=== PATIENT | male | born 1945 | race Caucasian/White ===

== ENCOUNTER 2017-02-26 06:46 | Day surgery (SDC) | payer MEDICARE ==
[~2017-02-26] VITALS: Ht 167.6 cm; Wt 65.8 kg
[2017-02-26] VITALS (11 sets, daily range): BP systolic 135–150; BP diastolic 67–90
[~2017-02-26 06:46] MED LIST: ALPR0.25 PO; DOXY100C42 PO; ENAL20TA PO; HEParin (CATH LAB) 2,000 ML IV ONE; HYDR12.570 GT; HYDR25TA4 PO; NEBI5TAB8 PO
--- OUTSIDE RECORDS SUMMARY | 2017-02-26 06:50 | XMS REPORT | Continuity of Care Document ---
Author Author [facility] Organization [facility] Address Unknown Phone Unavailable Allergies Active Description Code Type Severity Reaction Onset Reported/Identified Relationship to Patient Clinical Status Yes No Known Drug Allergies [id number] Drug Allergy Unknown N/ A 04/12/2014 Medications Problems Date Dx Coded Attending Type Code Diagnosis Diagnosed By 04/13/2014 VERONICA DEXTER MD Ot 250.00 04/13/2014 VERONICA DEXTER MD Ot 272.4 04/13/2014 VERONICA DEXTER MD Ot 276.1 04/13/2014 VERONICA DEXTER MD Ot 276.8 04/13/2014 VERONICA DEXTER MD Ot 278.00 04/13/2014 VERONICA DEXTER MD Ot 401.9 04/13/2014 VERONICA DEXTER MD Ot 410.41 04/13/2014 VERONICA DEXTER MD Ot 414.01 04/13/2014 VERONICA DEXTER MD Ot V85.36 05/13/2014 VERONICA DEXTER MD Ot 410.92 05/13/2014 VERONICA DEXTER MD Ot V57.89 05/24/2014 VERONICA DEXTER MD Ot 410.92 05/24/2014 VERONICA DEXTER MD Ot V57.89 07/01/2014 VERONICA DEXTER MD Ot 410.92 07/01/2014 VERONICA DEXTER MD Ot V57.89 07/01/2014 VERONICA DEXTER MD Ot 410.92 07/01/2014 VERONICA DEXTER MD Ot V57.89 07/27/2014 VERONICA DEXTER MD Ot 410.92 07/27/2014 VERONICA DEXTER MD Ot V57.89 08/09/2014 VERONICA DEXTER MD Ot 410.92 08/09/2014 VERONICA DEXTER MD Ot V57.89 08/10/2014 VERONICA DEXTER MD Ot 410.92 08/10/2014 GUERITA HA, BASDAWSON J Ot V57.89 08/10/2014 GUERITA HA, MALISSAHAR J Ot 410.92 08/10/2014 GUERITA HA, VERONICA J Ot V57.89 08/12/2014 GUERITA HA, BASHAR J Ot 410.92 08/12/2014 GUERITA HA, VERONICA J Ot V57.89 08/12/2014 GUERITA HA, VERONICA J Ot 410.92 08/12/2014 GUERITA HA, VERONICA J Ot V57.89 08/12/2014 GUERITA HA, BASHAR J Ot 410.92 08/12/2014 GUREITA HA, BASDAWSON J Ot V57.89 08/12/2014 GUERITA HA, VERONICA J Ot 410.92 08/12/2014 GUERITA HA, VERONICA J Ot V57.89 08/12/2014 GUERITA HA, VERONICA J Ot 410.92 08/12/2014 GUERITA HA, VERONICA J Ot V57.89 08/15/2014 GUERITA HA, VERONICA J Ot 410.92 08/15/2014 GUERITA HA, VERONICA J Ot V57.89 08/15/2014 GUERITA HA, VERONICA J Ot 410.92 08/15/2014 GUERITA HA, VERONICA J Ot V57.89 08/19/2014 GUERITA HA, VERONICA J Ot 410.92 08/19/2014 GUERITA HA, VERONICA J Ot V57.89 08/29/2014 VERONICA DEXTER MD Ot 272.4 08/29/2014 VERONICA DEXTER MD Ot 401.9 08/29/2014 VERONICA DEXTER MD Ot 414.00 08/29/2014 VERONICA DEXTER MD J Ot 786.50 09/08/2014 JAZMIN LOWRY MD Ot 250.00 09/08/2014 JAZMIN LOWRY MD Ot 916.4 09/08/2014 JAZMNI LOWRY MD Ot E000.8 09/08/2014 JAZMIN LOWRY MD Ot E906.4 10/13/2014 DIMA HA, MONY R Ot 250.00 03/01/2015 VERONICA DEXTER MD Ot 272.4 03/01/2015 VERONICA DEXTER MD Ot 401.9 03/01/2015 VERONICA DEXTER MD Ot 414.00 03/01/2015 VERONICA DEXTER MD Ot 786.50 03/01/2015 DIMA HA, MONY R Ot 250.00 03/02/2015 VERONICA DEXTER MD Ot E78.5 03/02/2015 VERONICA DEXTER MD Ot I25.10 03/02/2015 VERONICA DEXTER MD Ot I44.7 03/02/2015 VERONICA DEXTER MD Ot R07.89 03/29/2015 VERONICA DEXTER MD Ot E78.5 03/29/2015 VERONICA DEXTER MD Ot I25.10 03/29/2015 VERONICA DEXTER MD Ot I44.7 03/29/2015 VERONICA DEXTER MD Ot R07.89 04/04/2015 VERONICA DEXTER MD Ot E78.5 04/04/2015 VERONICA DEXTER MD Ot I25.10 04/04/2015 VERONICA DEXTER MD Ot I44.7 04/04/2015 VERONICA DEXTER MD Ot R07.9 04/06/2015 VERONICA DEXTER MD Ot E78.5 04/06/2015 VERONICA DEXTER MD Ot I25.10 04/06/2015 VERONICA DEXTER MD Ot I44.7 04/06/2015 VERONICA DEXTER MD Ot R07.89 04/10/2015 VERONICA DEXTER MD Ot E07.89 04/10/2015 VERONICA DEXTER MD Ot E78.4 04/10/2015 VERONICA DEXTER MD Ot I10 04/10/2015 VERONICA DEXTER MD Ot I25.10 04/13/2015 VERONICA DEXTER MD Ot E78.5 04/13/2015 VERONICA DEXTER MD Ot I25.10 04/13/2015 VERONICA DEXTER MD Ot I44.7 04/13/2015 VERONICA DEXTER MD Ot R07.9 Procedures Results Encounters ACCT No. Visit Date/Time Discharge Status Pt. Type Provider Facility Loc./Unit Complaint [id number] 03/30/2015 07:27:00 2014 23:59:59 CLS Outpatient VERONICA DEXTER MD [facility] LAB [id number] 03/10/2015 07:33:00 2014 23:59:59 CLS Outpatient VERONICA DEXTER MD [facility] CARD [id number] 03/01/2015 11:43:00 2014 23:59:59 CLS Outpatient VERONICA DEXTER MD [facility] CARD [id number] 09/20/2014 10:45:00 2014 23:59:59 CLS Outpatient DIMA HA, MONY Tran [facility] LAB [id number] 09/07/2014 23:28:00 2014 00:30:00 DIS Emergency ESSENCE HA, JAZMIN [facility] ER [id number] 08/19/2014 11:17:00 2014 12:10:00 DIS Outpatient VERONICA DEXTER MD [facility] CR [id number] 08/11/2014 09:00:00 2014 23:59:59 CLS Preadmit VERONICA DEXTER MD [facility] CR [id number] 08/10/2014 13:11:00 2014 00:01:00 DIS Outpatient VERONICA DEXTER MD [facility] CR [id number] 08/02/2014 06:33:00 2014 23:59:59 CLS Outpatient VERONICA DEXTER MD [facility] LAB [id number] 04/12/2014 07:10:00 2014 19:20:00 DIS Inpatient VERONICA DEXTER MD [facility] [id number] 02/26/2017 06:46:00 ACT Outpatient VERONICA DEXTER MD [facility] CATH ABN STRESS, CAD,
[2017-02-26] MEDS ORDERED: NS IV 1000 ML 1,000 ML IV SCH ×2 (07:00→09:21)
[2017-02-26 07:17] LABS: BILIRUBIN,URINE NEGATIVE (NEGATIVE); KETONES,URINE NEGATIVE (NEGATIVE); LEUKOCYTE ESTERASE ,URINE NEGATIVE (NEGATIVE); NITRITE,URINE NEGATIVE (NEGATIVE); PH,URINE 7 (5-9); PROTEIN,URINE NEGATIVE (NEGATIVE); UROBILINOGEN,URINE NORMAL (NORMAL)
[2017-02-26 07:19] LABS: MEAN PLATELET VOLUME 11.2 FL (7.4-10.4); RED BLOOD COUNT 4.28 10^6/uL (4.35-5.85); RED CELL DISTRIBUTION WIDTH 13.2 % (10.0-14.5); WHITE BLOOD COUNT 7.6 10^3/uL (4.3-11.0)
[2017-02-26 07:32] LABS: SQUAMOUS EPITHELIAL CELL,UR RARE /HPF; WBC,URINE RARE /HPF
[2017-02-26 07:34] LABS: PROTHROMBIN TIME PATIENT 12.8 SEC (12.2-14.7)
--- NOTE | 2017-02-26 07:38 | Diagnostic Imaging Report ---
INDICATION: Precatheterization evaluation. COMPARISON: 04/12/2014. FINDINGS: Upright portable view of the chest is obtained. There is significant distortion of the chest from severe dextrorotoscoliosis of the spine. Heart size and pulmonary vasculature appear normal. No pneumothorax, mediastinal widening or pleural fluid suspected. The lungs appear clear. There is chronic deformity of the left shoulder. IMPRESSION: No acute cardiopulmonary abnormality is seen. No interval change from the prior study. Dictated by: Dictated on workstation # [id number]
[2017-02-26] MEDS ORDERED: fentaNYL INJECTION 100 MCG/2 ML AMP ONE (07:42)
[2017-02-26] MEDS ORDERED: MIDAZOLAM 2 MG/2 ML (VERSED) VIAL ONE (07:43)
[2017-02-26] MEDS ORDERED: diphenhydrAMINE 50 MG/ML INJ (BENADRYL) ONE (07:43)
[2017-02-26] MEDS ORDERED: methylPREDNISolone 125 MG (Solu-MEDROL) VIAL ONE (07:43)
[2017-02-26 07:45] LABS: ALANINE AMINOTRANSFERASE 21 U/L (0-55); ANION GAP 11 MMOL/L (5-14); ASPARTATE AMINO TRANSFERASE 20 U/L (5-34); BILIRUBIN,TOTAL 0.7 MG/DL (0.1-1.0); BLOOD UREA NITROGEN 17 MG/DL (7-18); BUN/CREATININE RATIO 23; CALCIUM 10.1 MG/DL (8.5-10.1); CARBON DIOXIDE 29 MMOL/L (21-32); CHLORIDE 101 MMOL/L (98-107); CHOLESTEROL 112 MG/DL (< 200); CREATININE SERUM 0.75 MG/DL (0.60-1.30); DIRECT LDL 46 MG/DL (1-129); GFR ESTIMATED > 60; GLUCOSE 102 MG/DL (70-105); POTASSIUM 3.3 MMOL/L (3.6-5.0); SODIUM 141 MMOL/L (135-145); TOTAL PROTEIN 7.4 GM/DL (6.4-8.2); TRIGLYCERIDES 98 MG/DL (<150); VLDL CHOLESTEROL 20 MG/DL (5-40)
[2017-02-26] MEDS ORDERED: HEParin 1000 UNIT/ML (10ML VIAL) FOR BOLUS ONE (07:46)
[2017-02-26] MEDS ORDERED: NITROGLYCERIN DRIP 25 MG/D5W 250 ML IV ONE (07:46)
[2017-02-26] MEDS ORDERED: VERAPAMIL 5 MG/2 ML (CALAN) VIAL IV ONE (07:46)
[2017-02-26] MEDS ORDERED: TRAM50TA2 PO (07:49)
[2017-02-26] MEDS ORDERED: BACL10TA PO (07:49)
[2017-02-26] MEDS ORDERED: ASPI-586 PO (07:49)
[2017-02-26] MEDS ORDERED: ATOR40TA70 PO (07:49)
[2017-02-26] MEDS ORDERED: METF500T4 PO (07:49)
[2017-02-26] MEDS ORDERED: HYDR-3820 PO (07:49)
[2017-02-26] MEDS ORDERED: INFLUENZA TRIvalent 2017-2018 0.5 ML/45 MCG SYR IM ONE (08:00)
--- NOTE | 2017-02-26 09:18 | Cardiac Procedure Note-CS/ASA ---
Pre-Procedure Note Pre-Op Procedure Note H&P Reviewed The H&P was reviewed, patient examined and no changes noted. Date H&P Reviewed: Feb 26, 2017 Time H&P Reviewed: 08:00 Conscious Sedation Pre-Proced Time Reviewed: 08:00 ASA Class: 3 Airway Mallampati Classification: ([place] appropriate class) I. II. III, IV Lungs Heart ASA score ASA 1: a normal healthy patient ASA 2: a patient with a mild systemic disease (mid diabetes, controlled hypertension, obesity x ASA 3: a patient with a severe systemic disease that limits activity (angina , COPD, prior Myocardial infarction) ASA 4: a patient with an incapacitating disease that is a constant threat to life (CHF, renal failure) ASA 5: a moribund patient not expected to survive 24 hrs. (ruptured aneurysm) ASA 6: a declared brain patient whose organs are being harvested. For emergent operations, add the letter E after the classification Grade 3 Sedation Plan: Analgesia, Amnesia, Plan communicated to team members, Discussed options with patient/fam, Discussed risks with patient/fam Note The patient is an appropriate candidate to undergo the planned procedure, sedation, and anesthesia. The patient immediately re-assessed prior to indication. VERONICA DEXTER MD Feb 26, 2017 09:18
--- NOTE | 2017-02-26 09:25 | Discharge Inst-Post CATH ---
Discharge Inst-CATH Post Cardiac Cath D/C Inst Follow Up/Plan Appointment with Dr. Molina's office in 2-4 weeks CARDIAC CATH DISCHARGE INSTRUCTIONS *Hold Metformin for 48 hours post heart cath. ACTIVITY * Go Home directly and rest. * Limit activity of the leg (or wrist if it was used) for 7 days including aerobics, swimming, jogging, bicycling, etc. * Restrict stair-climbing for 7 days if possible, if not, climb up with your non -cath leg, then bring together on the same step. * Avoid lifting, pushing, pulling or excessive movement of the affected extremity for 7 days. * Customary sexual activity may be resumed after 2 days-use caution not to use a position that strains or causes pain to the affected extremity. * No driving for 24 hours. * NO SMOKING. * Avoid straining for bowel movements for 7 days. * Gentle walking on level ground is allowed. * Returning to work will depend on the type of procedure and the results. Your doctor will discuss this with you. CALL YOUR DOCTOR FOR ANY OF THE FOLLOWING: *If bleeding from the puncture site occurs- Apply gentle pressure to site with clean cloth and call your doctor or EMS. * If a knot or lump forms under the skin, increases in size, or causes pain. * If bruising appears to be worsening or moving further down your leg instead of disappearing. * Temperature above 101 F. CARE OF YOUR GROIN INCISION; * Bruising or purple discoloration of the skin near the puncture site is common. * You may shower only, no bathtub bathing for 5 days. Be careful to avoid slipping as your leg may feel stiff. * If a closure device was used on your femoral artery, please see the attached guide regarding care of the device and your leg. * REMOVE the dressing from your groin the next day after your procedure in the shower. CARE OF YOUR WRIST INCISION; * Bruising or purple discoloration of the skin near the puncture site is common. * You may shower. * DO NOT submerge wrist. * Remove dressing in 24 hours. VERONICA MOLINA MD Feb 26, 2017 9:25 am
[2017-02-26] MEDS ORDERED: PATIENT MAY USE OWN MEDS, ALL PO SCH (09:30)
--- NOTE | 2017-02-26 09:32 | Cardiac Cath Report ---
Cardiac Cath Report Physician (s)/Vp Of Marketing (s) Physician VERONICA DEXTER MD Pre-Procedure Diagnosis Pre-Procedure Diagnosis: chest pain, coronary artery disease Post-Procedure Note Procedure Start Date: Feb 26, 2017 Procedure Start Time: 08:30 Name of Procedure: left heart catheterization 68531 Left ventriculogram Findings/Procedure Note PROCEDURE NOTE: After explaining the procedure to the patient, all pros and cons were explained, all questions were answered. The patient signed the consent and then she was placed on the cardiac catheterization laboratory. The patient was placed on the cardiac catheterization laboratory. Right wrist was prepped SL fashion local anesthesia was used. Sheath placed in the radial artery. Brayden catheter was used, advanced to the coronary system and to the left ventricular cavity I used FR guide to evaluate the right coronary system Left ventriculogram was done At the end of the procedure the sheath was removed. Closure device was used FINDINGS: Hemodynamics LV 110/15 end-diastolic pressure 15 Aorta 110/50 mean of 19 ANATOMY: Left Main is free of obstructive disease Left Anterior Descending has a patent stent with mild disease distally Left Circumflex is moderate in size with patent stent in the mid circumflex artery, no significant obstructive disease Right Coronory Artery is [id number] in size, ostial 40-50 percent stenosis, mid right coronary artery has 50 percent stenosis, small vessel disease distally LV Gram was done showing normal left ventricular size and systolic function estimated ejection fraction 60 percent CONCLUSION: 1. Patent stent in the LAD and circumflex artery, small vessel disease distally 2. 40-50 percent ostial and mid right coronary artery, small vessel disease distally nonobstructive disease 3. Normal left ventricular size and systolic function estimated ejection fraction 60 percent DISCUSSION AND RECOMMENDATION: Medical therapy is recommended no intervention is warranted Anesthesia Type: Conscious Sedation Estimated blood loss (mL): 5 ml Contrast Amount: 114 ml Total Radiation Dose: 819 mGy Post-Procedure Diagnosis Post-operative diagnosis: Chest pain nonspecific etiology Coronary artery disease Hypertension VERONICA DEXTER MD Feb 26, 2017 9:31 am
== END 2017-02-26 12:40 | disposition home or self-care (01) ==
LOC: CATH 06:46 → SURG 09:24 → CATH 12:40
PROVIDERS: ATTEND Internal Medicine Cardiovascular Disease
DX: I25.10 Atherosclerotic heart disease of native coronary artery without angina pectoris (principal); I10 Essential (primary) hypertension; Z95.5 Presence of coronary angioplasty implant and graft; I25.2 Old myocardial infarction; Z79.899 Other long term (current) drug therapy; Z91.041 Radiographic dye allergy status; K21.9 Gastro-esophageal reflux disease without esophagitis; E78.5 Hyperlipidemia, unspecified; E11.9 Type 2 diabetes mellitus without complications; Z79.84 Long term (current) use of oral hypoglycemic drugs; Z79.891 Long term (current) use of opiate analgesic; I65.23 Occlusion and stenosis of bilateral carotid arteries; E66.9 Obesity, unspecified; M41.9 Scoliosis, unspecified; Z68.24 Body mass index [BMI] 24.0-24.9, adult
CPT/HCPCS: 36415; 71010; 80053; 80061; 81000; 85027; 85610; 85730; 87081; 93005

== ENCOUNTER 2019-12-18 19:56 | Observation (INO) | payer MEDICARE ==
[~2019-12-18] VITALS: Ht 167 cm; Wt 87.0 kg
[~2019-12-18 19:56] MED LIST changes: +ACHYD1T PO; +ASPI-586 PO; +ATOR40TA70 PO; +BACL10TA PO; -HEParin (CATH LAB) 2,000 ML IV ONE; +METF-397 PO; +TRM50T PO
[2019-12-18 20:15] LABS: BASOPHILS % (AUTO) 0 % (0-10); EOSINOPHILS # (AUTO) 0.3 10^3/uL (0.0-0.3); EOSINOPHILS % (AUTO) 4 % (0-10); HEMATOCRIT 42 % (40-54); HEMOGLOBIN 14.2 G/DL (13.3-17.7); LYMPHOCYTES # (AUTO) 1.7 X 10^3 (1.0-4.0); LYMPHOCYTES % (AUTO) 24 % (12-44); MEAN CORPUSCULAR HEMOGLOBIN 32 PG (25-34); MEAN CORPUSCULAR HGB CONC 34 G/DL (32-36); MEAN CORPUSCULAR VOLUME 93 FL (80-99); MONOCYTES # (AUTO) 0.6 X 10^3 (0.0-1.0); MONOCYTES % (AUTO) 8 % (0-12); NEUTROPHILS # (AUTO) 4.5 X 10^3 (1.8-7.8); NEUTROPHILS % (AUTO) 64 % (42-75); PLATELET COUNT 178 10^3/uL (130-400); WHITE BLOOD COUNT 7.1 10^3/uL (4.3-11.0)
--- NOTE | 2019-12-18 20:17 | ED Chest Pain ---
General Chief Complaint: Chest Pain Stated Complaint: CP Source: patient Exam Limitations: no limitations History of Present Illness Date Seen by Provider: Dec 18, 2019 Time Seen by Provider: 19:55 Initial Comments Patient arrives the ER by EMS from home with chief complaint of intermittent chest pain substernal radiating through to his back for the past week. He had a fall in his garage and he thought maybe that was the source of his back pain. Typically when his pain would come on while he was working on a car he would go in and sit down and the pain would go away. Tonight however he went and sat in his living room and the pain did not go away. Pain started about 1800, 2 hours prior to arrival. EMS put a nitroglycerin paste on his chest which brought his pain from an 8 out of 10 down to 3 out of 10. He has no history of AAA or great vessel disease. He does have a history of several coronary stents placed by Dr. Molina. He still follows with him. Dr. Worrell is his primary care doctor. He is not having any shortness of breath fever cough nausea vomiting diarrhea or constipation. He does not smoke cigarettes anymore. He does have diabetes however as well as hypertension and hyperlipidemia. He did take a dose of Xanax prior to coming to the ER. Cardiac catheterization [address] Molina. Patent stent in the LAD and circumflex artery. Small vessel disease distally. 40-50% ostial and mid right coronary artery, small vessel disease distally nonobstructive. Normal left ventricular size and systolic function with EF of 60%. Allergies and Home Medications Allergies Uncoded Allergies: IV DYE (Allergy, Unknown, 12/18/19) Home Medications Alprazolam 0.25 Mg Tablet, 0.25 MG PO HSPRN, (Reported) Aspirin 81 Mg Tablet.dr, 81 MG PO DAILY, (Reported) Atorvastatin Calcium 40 Mg Tablet, 40 MG PO HS, (Reported) Baclofen 10 Mg Tablet, 10 MG PO PRN, (Reported) Hydrochlorothiazide 25 Mg Tablet, 25 MG PO DAILY, (Reported) Hydrocodone Bit/Acetaminophen 1 Each Tablet, 1 EACH PO PRN, (Reported) Metformin HCl 500 Mg Tablet, 500 MG PO BID, (Reported) Nebivolol Hcl 5 Mg Tablet, 1 EACH PO DAILY, (Reported) Tramadol HCl 50 Mg Tablet, 50 MG PO PRN, (Reported) Patient Home Medication List Home Medication List Reviewed: Yes Review of Systems Review of Systems Constitutional: No chills, No fever EENTM: No Blurred Vision, No Double Vision Respiratory: Denies Cough, Denies Shortness of Air Cardiovascular: See HPI, Chest Pain; Denies Edema, Denies Irregular Heart Rate, Denies Palpitations, Denies Syncope Gastrointestinal: Denies Constipated, Denies Diarrhea, Denies Nausea Genitourinary: Denies Discharge, Denies Drainage Musculoskeletal: see HPI, back pain; No joint pain All Other Systems Reviewed Negative Unless Noted: Yes Past Pvgjmym-Faiqct-Ogjihy Hx Patient Social History Alcohol Use: Denies Use Recreational Drug Use: No Smoking Status: Former Smoker Type Used: Cigarettes Former Smoker, Quit: Feb 26, 1982 Immunizations Up To Date Tetanus Booster (TDap): Less than 5yrs PED Vaccines UTD: No Seasonal Allergies Seasonal Allergies: No Past Medical History Appendectomy, Gallbladder, Orthopedic Hypertension Reproductive Disorders: No Sexually Transmitted Disease: No HIV/AIDS: No Gastroesophageal Reflux Anxiety Adverse Reaction/Blood Tranf: No Family Medical History FH: COPD (chronic obstructive pulmonary disease) 19 MOTHER, Onset:60 years & older FH: lung cancer 19 FATHER, Onset:60 years & older Glaucoma G8 SISTER, Onset:Unknown Hypertension G8 BROTHER, Onset:Unknown G8 SISTER, Onset:Unknown TIAs G8 BROTHER, Onset:Unknown Physical Exam Vital Signs Capillary Refill : Height, Weight, BMI Height: 5'6.00" Weight: 145lbs. 0.0oz. 65.850395vl; 23.4 BMI Method:Stated General Appearance: No Apparent Distress, WD/WN HEENT: PERRL/EOMI, Pharynx Normal Neck: Full Range of Motion, Normal Inspection Respiratory: Chest Non Tender, Lungs Clear, Normal Breath Sounds, No Accessory Muscle Use, No Respiratory Distress Cardiovascular: Regular Rate, Rhythm, No Edema, Normal Peripheral Pulses Gastrointestinal: Normal Bowel Sounds, Non Tender, Soft Extremity: Normal Capillary Refill, Normal Range of Motion, Non Tender Neurologic/Psychiatric: Oriented x3 Skin: Normal Color, Warm/Dry Progress/Results/Core Measures Results/Orders Lab Results Laboratory Tests Test 12/18/19 20:00 Range/Units White Blood Count 7.1 4.3-11.0 10^3/uL Red Blood Count 4.50 4.35-5.85 10^6/uL Hemoglobin 14.2 13.3-17.7 G/DL Hematocrit 42 40-54 % Mean Corpuscular Volume 93 80-99 FL Mean Corpuscular Hemoglobin 32 25-34 PG Mean Corpuscular Hemoglobin Concent 34 32-36 G/DL Red Cell Distribution Width 13.6 10.0-14.5 % Platelet Count 178 130-400 10^3/uL Mean Platelet Volume 11.0 H 7.4-10.4 FL Neutrophils (%) (Auto) 64 42-75 % Lymphocytes (%) (Auto) 24 12-44 % Monocytes (%) (Auto) 8 0-12 % Eosinophils (%) (Auto) 4 0-10 % Basophils (%) (Auto) 0 0-10 % Neutrophils # (Auto) 4.5 1.8-7.8 X 10^3 Lymphocytes # (Auto) 1.7 1.0-4.0 X 10^3 Monocytes # (Auto) 0.6 0.0-1.0 X 10^3 Eosinophils # (Auto) 0.3 0.0-0.3 10^3/uL Basophils # (Auto) 0.0 0.0-0.1 10^3/uL Prothrombin Time 13.1 12.2-14.7 SEC INR Comment 1.0 0.8-1.4 Activated Partial Thromboplast Time 26 24-35 SEC Sodium Level 141 135-145 MMOL/L Potassium Level 3.5 L 3.6-5.0 MMOL/L Chloride Level 102 98-107 MMOL/L Carbon Dioxide Level 26 21-32 MMOL/L Anion Gap 13 5-14 MMOL/L Blood Urea Nitrogen 18 7-18 MG/DL Creatinine 0.98 0.60-1.30 MG/DL Estimat Glomerular Filtration Rate > 60 BUN/Creatinine Ratio 18 Glucose Level 199 H 70-105 MG/DL Calcium Level 9.8 8.5-10.1 MG/DL Corrected Calcium 9.7 8.5-10.1 MG/DL Magnesium Level 1.6 1.6-2.4 MG/DL Total Bilirubin 0.3 0.1-1.0 MG/DL Aspartate Amino Transf (AST/SGOT) 19 5-34 U/L Alanine Aminotransferase (ALT/SGPT) 20 0-55 U/L Alkaline Phosphatase 96 40-136 U/L Myoglobin 176.8 H 10.0-92.0 NG/ML Troponin I 0.039 H <0.028 NG/ML B-Type Natriuretic Peptide 27.1 <100.0 PG/ML Total Protein 7.1 6.4-8.2 GM/DL Albumin 4.1 3.2-4.5 GM/DL Lipase 33 8-78 U/L My Orders Orders - ELIAZAR,BRAD J Cbc With Automated Diff (12/18/19:) Magnesium (12/18/19:) Chest 1 View, Ap/Pa Only (12/18/19:) Ekg Tracing (12/18/19:) Comprehensive Metabolic Panel (12/18/19) Myoglobin Serum (12/18/19:) Protime With Inr (12/18/19:) Partial Thromboplastin Time (12/18/19:) O2 (12/18/19:) Monitor-Rhythm Ecg Trace Only (12/18/19:) Lipid Panel (12/19/19 06:00) Ed Iv/Invasive Line Start (12/18/19:) Lipase (12/18/19 20:) BNP (12/18/19:) Troponin I (12/18/19:) Progress Progress Note : Time: 20:13 Progress Note EMS gave him 4 aspirin prior to arrival. He has received nitroglycerin paste which seems to be helping his pain. He does have some minor depression which could be related to a right bundle branch block in his lateral leads. Plan to repeat an EKG after a while. We'll get some troponins. Even with a normal troponin he would have a heart score 7 points. 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 Diagnostic Imaging Diagonstic Imaging: Xray Plain Films/CT/US/NM/MRI: chest (1v) Comments NAME: SHAHZAD MUNOZ [facility] REC#: [id number] PT STATUS: REG ER : 1945 PHYSICIAN: BRAD PEREA MD ADMIT DATE: 12/18/19/ER Draft Date of Exam:12/18/19 CHEST 1 VIEW, AP/PA ONLY EXAMINATION: Chest radiograph, portable AP view. DATE: 12/18/2019 8:28 PM. INDICATION: 74-year-old male, chest pain. COMPARISON: February 26, 2017. FINDINGS: There is severe thoracic dextroscoliosis. Stable overall appearance of the cardiomediastinal silhouette. There is no identified pneumothorax. There is no large pleural effusion. There is no identified interval focal airspace consolidation. There is ankylosis between the humeral head and glenoid and potentially in the region of the left acromioclavicular joint as well. IMPRESSION: 1. Severe scoliosis. 2. No identified interval acute cardiopulmonary abnormality. Dictated on workstation # [id number] Dict: 12/18/192031 Trans: 12/18/192039 [facility] [id number] Interpreted by: JUAN SANCHEZ MD Electronically signed by: Reviewed: Reviewed by Me Departure Communication (Admissions) Time/Spoke to Admitting Phy: 20:45 Discussed the case with Dr. Hernandez and he agrees to observe the patient with a cardiac consult. Time/Spoke to Consulting Phy: 20:40 Discussed the case with Dr. Molina and he agrees to consult with aspirin, Lovenox. Impression Primary Impression: Unstable angina Disposition: ADMITTED INPATIENT Condition: Stable Admissions Decision to Admit Reason: Admit from ER (General) Decision to Admit/Date: Dec 18, 2019 Time/Decision to Admit Time: 20:17 Departure-Patient Inst. Referrals: MONY CH MD (PCP/Family) Primary Care Physician BRAD PEREA Dec 18, 2019 20:17
[2019-12-18 20:23] LABS: PROTHROMBIN TIME PATIENT 13.1 SEC (12.2-14.7)
[2019-12-18 20:35] LABS: ALANINE AMINOTRANSFERASE 20 U/L (0-55); ALBUMIN 4.1 GM/DL (3.2-4.5); ALKALINE PHOSPHATASE 96 U/L (40-136); BILIRUBIN,TOTAL 0.3 MG/DL (0.1-1.0); BUN/CREATININE RATIO 18; CALCIUM 9.8 MG/DL (8.5-10.1); CARBON DIOXIDE 26 MMOL/L (21-32); CHLORIDE 102 MMOL/L (98-107); CREATININE SERUM 0.98 MG/DL (0.60-1.30); GFR ESTIMATED > 60; GLUCOSE 199 MG/DL (70-105); LIPASE 33 U/L (8-78); MAGNESIUM 1.6 MG/DL (1.6-2.4); POTASSIUM 3.5 MMOL/L (3.6-5.0); SODIUM 141 MMOL/L (135-145); TOTAL PROTEIN 7.1 GM/DL (6.4-8.2)
--- NOTE | 2019-12-18 20:42 | Diagnostic Imaging Report ---
EXAMINATION: Chest radiograph, portable AP view. DATE: 12/18/2019 8:28 PM. INDICATION: 74-year-old male, chest pain. COMPARISON: February 26, 2017. FINDINGS: There is severe thoracic dextroscoliosis. Stable overall appearance of the cardiomediastinal silhouette. There is no identified pneumothorax. There is no large pleural effusion. There is no identified interval focal airspace consolidation. There is ankylosis between the humeral head and glenoid and potentially in the region of the left acromioclavicular joint as well. IMPRESSION: 1. Severe scoliosis. 2. No identified interval acute cardiopulmonary abnormality. Dictated by: Dictated on workstation # [id number]
[2019-12-18] MEDS ORDERED: ENOXAPARIN 100 MG/1 ML (LOVENOX) SYR SC ONE (21:00)
[2019-12-18 21:47] VITALS: BP 150/83
[2019-12-18] MEDS ORDERED: ACETAMINOPHEN 325 MG TABLET PO PRN (22:00)
[2019-12-18] MEDS ORDERED: ALPRAZolam 0.5 MG (XANAX) TAB PO PRN (22:00)
[2019-12-18] MEDS ORDERED: NITROGLYCERIN 2% OINT 1 GM UNIT DOSE PACKET TOP PRN (22:00)
[2019-12-18] MEDS ORDERED: morphine INJ 4 MG/ML 1 ML (VIAL/SYRINGE) IV PRN (22:00)
[2019-12-18] MEDS ORDERED: ONDANSETRON 4 MG/2 ML (SDV) Z0FRAN IVP PRN (22:00)
[2019-12-18 23:09] VITALS: BP 117/57
[2019-12-19] VITALS (13 sets, daily range): BP systolic 104–159; BP diastolic 54–87
[2019-12-19 03:18] LABS: BASOPHILS % (AUTO) 1 % (0-10); EOSINOPHILS # (AUTO) 0.2 10^3/uL (0.0-0.3); EOSINOPHILS % (AUTO) 3 % (0-10); HEMATOCRIT 38 % (40-54); HEMOGLOBIN 13.1 G/DL (13.3-17.7); LYMPHOCYTES # (AUTO) 2.4 X 10^3 (1.0-4.0); LYMPHOCYTES % (AUTO) 30 % (12-44); MEAN CORPUSCULAR HEMOGLOBIN 32 PG (25-34); MEAN CORPUSCULAR HGB CONC 34 G/DL (32-36); MEAN CORPUSCULAR VOLUME 93 FL (80-99); MEAN PLATELET VOLUME 11.4 FL (7.4-10.4); MONOCYTES # (AUTO) 0.8 X 10^3 (0.0-1.0); MONOCYTES % (AUTO) 11 % (0-12); NEUTROPHILS # (AUTO) 4.5 X 10^3 (1.8-7.8); NEUTROPHILS % (AUTO) 56 % (42-75); PLATELET COUNT 177 10^3/uL (130-400)
[2019-12-19 03:35] LABS: ALBUMIN 3.7 GM/DL (3.2-4.5); CHLORIDE 103 MMOL/L (98-107); POTASSIUM 3.5 MMOL/L (3.6-5.0); SODIUM 140 MMOL/L (135-145)
[2019-12-19 03:36] LABS: CALCIUM 9.7 MG/DL (8.5-10.1)
[2019-12-19 03:37] LABS: TOTAL PROTEIN 6.1 GM/DL (6.4-8.2); TRIGLYCERIDES 132 MG/DL (<150); VLDL CHOLESTEROL 26 MG/DL (5-40)
[2019-12-19 03:38] LABS: GLUCOSE 97 MG/DL (70-105)
[2019-12-19 03:39] LABS: BILIRUBIN,TOTAL 0.3 MG/DL (0.1-1.0); CARBON DIOXIDE 27 MMOL/L (21-32)
[2019-12-19 03:41] LABS: ALKALINE PHOSPHATASE 76 U/L (40-136); CREATININE SERUM 0.77 MG/DL (0.60-1.30); GFR ESTIMATED > 60
[2019-12-19 03:42] LABS: CHOLESTEROL 108 MG/DL (< 200)
[2019-12-19 03:43] LABS: BUN/CREATININE RATIO 22; HDL CHOLESTEROL 41 MG/DL (40-60)
[2019-12-19 03:44] LABS: ALANINE AMINOTRANSFERASE 15 U/L (0-55)
[2019-12-19] MEDS ORDERED: FLU QUAD HIGH DOSE 240 MCG/0.7 ML 2020-21 (FLUZONE) IM ONE (07:15)
[2019-12-19] MEDS ORDERED: ASPIRIN E.C. 81 MG (ECOTRIN) TAB PO SCH (09:00)
[2019-12-19] MEDS ORDERED: ENOXAPARIN 100 MG/1 ML (LOVENOX) SYR SC SCH (09:00)
[2019-12-19] MEDS ORDERED: fentaNYL INJECTION 100 MCG/2 ML AMP ONE (09:11)
[2019-12-19] MEDS ORDERED: MIDAZOLAM 5 MG/5 ML (VERSED) VIAL ONE (09:11)
[2019-12-19] MEDS ORDERED: LIDOCAINE 1% INJ 20 ML 20 ML VIAL ONE (09:11)
[2019-12-19] MEDS ORDERED: HEParin (CATH LAB) 2,000 ML IV ONE (09:12)
[2019-12-19] MEDS ORDERED: NS IV 1000 ML 1,000 ML ONE (09:12)
[2019-12-19] MEDS ORDERED: diphenhydrAMINE 50 MG/ML INJ (BENADRYL) ONE (09:46)
[2019-12-19] MEDS ORDERED: methylPREDNISolone 125 MG (Solu-MEDROL) VIAL ONE (09:46)
--- NOTE | 2019-12-19 09:53 | Consultation-Cardiology ---
HPI-Cardiology Cardiology Consultation Date of Consultation 12/19/19 Date of Admission Time Seen by Provider: 09:49 Indication: chest pain HPI 74 years old gentleman with history of coronary artery disease, multiple intervention the past. Start to have recurrent chest pain with exertion which was worsening over the past 2 days, had significant pain in the retrosternal area yesterday evening, persistent, came into the emergency room for evaluation given sublingual nitroglycerin and reported improvement after the nitroglycerin since then did not have any further episode of chest pain until this morning when he had mild chest discomfort. On my evaluation was feeling better, denied any active pain, admits having some dyspnea on exertion. No palpitation. No syncope or near syncopal episodes Home Medications & Allergies Allergies: Uncoded Allergies: IV DYE (Allergy, Unknown, 12/18/19) Home Medication List Reviewed: Yes NLM-Shyibk-Nnjhnc Hx Patient Social History Marital Status: Employed/Student: employed, retired Alcohol Use: Denies Use Recreational Drug Use: No Smoking Status: Former Smoker Type Used: Cigarettes Recent Foreign Travel: No Recent Infectious Disease Expo: No Recent Hopitalizations: No Immunizations Up To Date Tetanus Booster (TDap): Less than 5yrs Past Medical History Discussed below Family Medical History Family History: FH: COPD (chronic obstructive pulmonary disease) 19 MOTHER, Onset:60 years & older FH: lung cancer 19 FATHER, Onset:60 years & older Glaucoma G8 SISTER, Onset:Unknown Hypertension G8 BROTHER, Onset:Unknown G8 SISTER, Onset:Unknown TIAs G8 BROTHER, Onset:Unknown Review of Systems-General Review of Systems Constitutional: No chills, No fever EENTM: see HPI, no symptoms reported Respiratory: see HPI; No cough; dyspnea on exertion; No hemoptysis, No orthopnea, No phlegm, No short of breath, No stridor, No wheezing, No other Cardiovascular: see HPI, chest pain; No edema, No Hx of Intervention, No palpitations, No syncope, No vascular heart diseas, No other Gastrointestinal: no symptoms reported, see HPI Genitourinary: no symptoms reported, see HPI Musculoskeletal: see HPI, back pain; No joint pain Skin: no symptoms reported, see HPI Psychiatric/Neurological: No Symptoms Reported, See HPI All Other Systems Reviewed Negative Unless Noted: Yes Reviewed Test Results Reviewed Test Results Lab Laboratory Tests Test 12/18/19 20:00 12/19/19 01:58 12/19/19 08:08 Range/Units White Blood Count 7.1 8.0 4.3-11.0 10^3/uL Red Blood Count 4.50 4.12 L 4.35-5.85 10^6/uL Hemoglobin 14.2 13.1 L 13.3-17.7 G/DL Hematocrit 42 38 L 40-54 % Mean Corpuscular Volume 93 93 80-99 FL Mean Corpuscular Hemoglobin 32 32 25-34 PG Mean Corpuscular Hemoglobin Concent 34 34 32-36 G/DL Red Cell Distribution Width 13.6 13.4 10.0-14.5 % Platelet Count 178 177 130-400 10^3/uL Mean Platelet Volume 11.0 H 11.4 H 7.4-10.4 FL Neutrophils (%) (Auto) 64 56 42-75 % Lymphocytes (%) (Auto) 24 30 12-44 % Monocytes (%) (Auto) 8 11 0-12 % Eosinophils (%) (Auto) 4 3 0-10 % Basophils (%) (Auto) 0 1 0-10 % Neutrophils # (Auto) 4.5 4.5 1.8-7.8 X 10^3 Lymphocytes # (Auto) 1.7 2.4 1.0-4.0 X 10^3 Monocytes # (Auto) 0.6 0.8 0.0-1.0 X 10^3 Eosinophils # (Auto) 0.3 0.2 0.0-0.3 10^3/uL Basophils # (Auto) 0.0 0.0 0.0-0.1 10^3/uL Prothrombin Time 13.1 12.2-14.7 SEC INR Comment 1.0 0.8-1.4 Activated Partial Thromboplast Time 26 24-35 SEC Sodium Level 141 140 135-145 MMOL/L Potassium Level 3.5 L 3.5 L 3.6-5.0 MMOL/L Chloride Level 102 103 98-107 MMOL/L Carbon Dioxide Level 26 27 21-32 MMOL/L Anion Gap 13 10 5-14 MMOL/L Blood Urea Nitrogen 18 17 7-18 MG/DL Creatinine 0.98 0.77 0.60-1.30 MG/DL Estimat Glomerular Filtration Rate > 60 > 60 BUN/Creatinine Ratio 18 22 Glucose Level 199 H 97 70-105 MG/DL Calcium Level 9.8 9.7 8.5-10.1 MG/DL Corrected Calcium 9.7 9.9 8.5-10.1 MG/DL Magnesium Level 1.6 1.6-2.4 MG/DL Total Bilirubin 0.3 0.3 0.1-1.0 MG/DL Aspartate Amino Transf (AST/SGOT) 19 21 5-34 U/L Alanine Aminotransferase (ALT/SGPT) 20 15 0-55 U/L Alkaline Phosphatase 96 76 40-136 U/L Myoglobin 176.8 H 10.0-92.0 NG/ML Troponin I 0.039 H 0.873 *H 1.903 *H <0.028 NG/ML B-Type Natriuretic Peptide 27.1 <100.0 PG/ML Total Protein 7.1 6.1 L 6.4-8.2 GM/DL Albumin 4.1 3.7 3.2-4.5 GM/DL Lipase 33 8-78 U/L Triglycerides Level 132 <150 MG/DL Cholesterol Level 108 < 200 MG/DL LDL Cholesterol Direct 55 1-129 MG/DL VLDL Cholesterol 26 5-40 MG/DL HDL Cholesterol 41 40-60 MG/DL Physical Exam Physical Exam Vital Signs Vital Signs - First Documented 12/18/19 21:32 Pulse Ox 98 Capillary Refill : Less Than 3 SecondsLess Than 3 Seconds Height, Weight, BMI Height: 5'6.00" Weight: 145lbs. 0.0oz. 65.126091mm; 31.37 BMI Method:Stated General Appearance: No Apparent Distress, WD/WN Eyes: Bilateral Eye Normal Inspection, Bilateral Eye PERRL, Bilateral Eye EOMI HEENT: PERRL/EOMI, Pharynx Normal Neck: Full Range of Motion, Normal Inspection Respiratory: Chest Non Tender, Lungs Clear, Normal Breath Sounds, No Accessory Muscle Use, No Respiratory Distress Cardiovascular: Regular Rate, Rhythm, No Edema, Normal Peripheral Pulses Gastrointestinal: Normal Bowel Sounds, Non Tender, Soft Back: Normal Inspection, No CVA Tenderness, No Vertebral Tenderness Extremity: Normal Capillary Refill, Normal Range of Motion, Non Tender Neurologic/Psychiatric: Oriented x3 Skin: Normal Color, Warm/Dry Lymphatic: No Adenopathy A/P-Cardiology Admission Diagnosis Non-ST elevation myocardial infarctions Coronary artery disease Hypertension Hyperlipidemia Assessment/Plan Non-ST elevation myocardial infarction, has been having accelerating angina. Planning to proceed with cardiac catheterization possible PTCA Coronary artery disease status post myocardial infarction in 2014 had 2 stents in the right coronary artery using 2.5 x 8 and 2.75 x 12 mm with good results. Patient had multivessel disease he was transferred to [facility] underwent LAD stenting using Promus Premier 2.75 x 20 mm and stent to the circumflex artery using Promus Premier 3.0 x 28 mm. Had another cardiac catheterization January 2017 showing patent stent with small vessel disease distally. Ostial right coronary artery. Planning to proceed with cardiac catheterization today. Hypertension, restart home medication monitor Hyperlipidemia, restart home medication monitor Mild bilateral carotid stenosis, last ultrasound was done in November 2018 Diabetes mellitus History of back pain. Clinical Quality Measures AMI/AHF: ASA po Prior to arrival: Yes (4 81MG ASA PO) DVT/VTE Risk/Contraindication: Risk Factor Score Per Nursin RFS Level Per Nursing on Admit: 3=High VERONICA DEXTER MD Dec 19, 2019 9:53 am
--- NOTE | 2019-12-19 09:53 | Cardiac Procedure Note-CS/ASA ---
Pre-Procedure Note Pre-Op Procedure Note H&P Reviewed The H&P was reviewed, patient examined and no changes noted. Date H&P Reviewed: Dec 19, 2019 Time H&P Reviewed: 09:53 Conscious Sedation Pre-Proced Time 09:53 ASA Score 3 For ASA 3 and 4: Consider anesthesia and medical clearance. Also, for patients with a history of failed moderate sedation consider anesthesia. Airway Lungs Heart ASA score ASA 1: a normal healthy patient ASA 2: a patient with a mild systemic disease (mid diabetes, controlled hypertension, obesity x ASA 3: a patient with a severe systemic disease that limits activity (angina, COPD, prior Myocardial infarction) ASA 4: a patient with an incapacitating disease that is a constant threat to life (CHF, renal failure) ASA 5: a moribund patient not expected to survive 24 hrs. (ruptured aneurysm) ASA 6: a declared brain- patient whose organs are being harvested. For emergent operations, add the letter E after the classification Mallampati Classification Grade 3 Sedation Plan Analgesia, Amnesia, Plan communicated to team members, Discussed options with patient/fam, Discussed risks with patient/fam The patient is an appropriate candidate to undergo the planned procedure, sedation, and anesthesia. The patient immediately re-assessed prior to indication. VERONICA DEXTER MD Dec 19, 2019 9:53 am
[2019-12-19] MEDS ORDERED: HEParin 1000 UNIT/ML (10ML VIAL) FOR BOLUS ONE (10:07)
[2019-12-19] MEDS: NS IV 1000 ML 1,000 ML IV SCH ×4 (10:10→19:14)
[2019-12-19] MEDS ORDERED: NITRO DRIP 25000 MCG/D5W 0 ML IV ONE (10:18)
[2019-12-19] MEDS ORDERED: ASPIRIN 325 MG (5 GR) TABLET ONE (10:32)
[2019-12-19] MEDS ORDERED: CLOPIDOGREL 300 MG (PLAVIX) TABLET PO ONE (10:32)
--- NOTE | 2019-12-19 10:40 | Cardiac Cath Report ---
Cardiac Cath Report Physician (s)/Brazer Induction (s) Physician VERONICA DEXTER MD Pre-Procedure Diagnosis Pre-Procedure Diagnosis: chest pain, coronary artery disease Post-Procedure Note Procedure Start Date: Dec 19, 2019 Name of Procedure: Left heart catheterization Stenting of the circumflex artery Findings/Procedure Note PROCEDURE NOTE: 74 years old gentleman admitted with unstable angina, had elevated troponin level, nondiagnostic EKG changes, diagnosed with non-ST elevation myocardial infarction, decided to proceed with cardiac catheterization possible PTCA After explaining the procedure to the patient, all pros and cons were explained, all questions were answered. The patient signed the consent and then he was placed on the cardiac catheterization laboratory. Premedicated with Solu-Medrol and Benadryl due to contrast allergy. Groin was prepped SL fashion local anesthesia was used. Sheath placed in the right femoral artery. Lori right and left catheter were used to access the coronary system. Pigtail was used to access the left ventricular cavity. Left ventriculogram was done Patient was given 6000 units of heparin, EBU 3.5 guide was used, had tortuous aorta, had difficulty intubating the left main with a guide. I used BMW wire and advanced it through the circumflex artery, had subtotal occlusion the mid circumflex artery. Then I advanced a 3 x 15 balloon and using the balloon as a shaft I was able to position the guide at a better spot didn't predilated location the lesion was soft then proceeded with deployment of Xience Fatuma 3 x 12 mm stent overlapping with an old stent deployed at 3.15 mm under 16 mango with excellent results At the end of the procedure the sheath was removed. Closure device was used FINDINGS: Hemodynamics LV 164/19, end-diastolic pressure of 19 Aorta 157/71 mean of 105 ANATOMY: Left Main is free of obstructive disease Left Anterior Descending is slightly tortuous, patent stent in the mid LAD with mild disease distally Left Circumflex is dominant artery with severe stenosis/subtotal occlusion in the midportion, successful balloon angioplasty then deployment of Fatuma 3 x 12 mm stent expanded to 3.15 mm overlapping with the old stent in the mid circumflex artery with excellent results Right Coronory Artery has 2 patent stents in the proximal and midportion with mild disease distally 50 percent stenosis of the midportion nonobstructive disease LV Gram was done showing normal left ventricular size with normal systolic function estimated ejection fraction 50 percent CONCLUSION: 1. Severe stenosis/subtotal occlusion in the mid circumflex artery proximal to a previously placed stent, successful stenting using Fatuma 3 x 12 mm expanded to 3.15 overlapping with the old stent with excellent results 2. A 10 stent in the LAD with some tortuosity and mild disease nonobstructive disease 3. Patent proximal and mid stent in the right coronary artery with 50 percent stenosis in the midright coronary artery nonobstructive disease 4. Normal left ventricular size, preserved contractibility, EF 50 percent 5. Hypertensive changes in the thoracic aorta with S-shaped aortic DISCUSSION AND RECOMMENDATION: Patient was bolused with aspirin and Plavix, restart home medication monitor Anesthesia Type: Conscious Sedation Estimated blood loss (mL): 25 ml Contrast Amount: 120 ml Total Radiation Dose: 1442 mGy Post-Procedure Diagnosis Post-operative diagnosis: Non-ST elevation myocardial infarction Coronary artery disease Hypertension Hyperlipidemia VERONICA DEXTER MD Dec 19, 2019 10:40 am
[2019-12-19] MEDS ORDERED: PATIENT MAY USE OWN MEDS, ALL PO SCH (10:45)
--- NOTE | 2019-12-19 11:37 | History & Physical-Hospitalist ---
History of Present Illness HPI/Chief Complaint Aristides Berg is a 74-year-old male with past medical history of hypertension, diabetes, hyperlipidemia, coronary artery disease, who presented with chest pain.he reports that the chest pain was in the center of his chest and nonradiating. He denies any associated shortness of breath. He denies any nausea or vomiting. He denies any diaphoresis. He says that his chest pain is completely resolved at this time. He denies any fevers or chills. He denies any cough. He denies any abdominal pain. Source: patient, family Exam Limitations: no limitations Date Seen 12/19/19 Time Seen by a Provider: 08:30 Attending Physician Nathaly Smith MD PCP Tonio Hernandez MD Referring Physician Date of Admission Dec 18, 2019 at 20:55 Home Medications & Allergies Home Medications Reviewed patient Home Medication Reconciliation performed by pharmacy medication reconciliations alignment technician and/or nursing. Patients Allergies have been reviewed. Allergies Allergies Uncoded Allergies IV DYE ( Allergy, Unknown, 12/18/19) Past Hmephpd-Wiuvkc-Vobemj Hx Past Med/Social Hx: Reviewed Nursing Past Med/Soc Hx Patient Social History Marrital Status: Employed/Student: employed, retired Alcohol Use: Denies Use Recreational Drug Use: No Smoking Status: Former Smoker Former Smoker, Quit: Feb 26, 1982 Type Used: Cigarettes Recent Foreign Travel: No Contact w/other who traveled: No Recent Hopitalizations: No Recent Infectious Disease Expo: No Immunizations Up To Date Tetanus Booster (TDap): Less than 5yrs Pediatric: No Seasonal Allergies Seasonal Allergies: No Past Medical History Surgeries: Appendectomy, Gallbladder, Orthopedic Cardiac: Heart Attack, Hypertension Reproductive: No Sexually Transmitted Disease: No HIV/AIDS: No Gastrointestinal: Gastroesophageal Reflux Psychosocial: Anxiety History of Blood Disorders: No Adverse Reaction to Blood Lopez: No Family History FH: COPD (chronic obstructive pulmonary disease) 19 MOTHER, Onset:60 years & older FH: lung cancer 19 FATHER, Onset:60 years & older Glaucoma G8 SISTER, Onset:Unknown Hypertension G8 BROTHER, Onset:Unknown G8 SISTER, Onset:Unknown TIAs G8 BROTHER, Onset:Unknown Review of Systems Constitutional: no symptoms reported EENTM: no symptoms reported Respiratory: no symptoms reported Cardiovascular: chest pain Gastrointestinal: no symptoms reported Genitourinary: no symptoms reported Musculoskeletal: no symptoms reported Skin: no symptoms reported Psychiatric/Neurological: No Symptoms Reported Physical Exam Physical Exam Vital Signs Vital Signs - First Documented 12/18/19 21:32 Pulse Ox 98 Capillary Refill : Less Than 3 SecondsLess Than 3 Seconds Height, Weight, BMI Height: 5'6.00" Weight: 145lbs. 0.0oz. 65.125884ur; 31.37 BMI Method:Stated General Appearance: No Apparent Distress, WD/WN HEENT: PERRL/EOMI, Pharynx Normal Neck: Normal Inspection, Supple Respiratory: Lungs Clear, Normal Breath Sounds, No Respiratory Distress Cardiovascular: Regular Rate, Rhythm, No Edema, No Murmur Gastrointestinal: Normal Bowel Sounds, Non Tender, Soft Extremity: Normal Inspection, Non Tender, No Pedal Edema Neurologic/Psychiatric: Alert, Oriented x3, No Motor/Sensory Deficits, Normal Mood/Affect Skin: Normal Color, Warm/Dry Results Results/Procedures Labs Laboratory Tests 12/18/19 20:00 12/19/19 01:58 Patient resulted labs reviewed. Imaging: Reviewed Imaging Report Assessment/Plan Admission Diagnosis NSTEMI Admission Status: Inpatient Order (span 2 midnights) Reason for Inpatient Admission: NSTEMI requiring monitoring and cardiac intervention Assessment and Plan NSTEMI CAD HTN HLD Former smoker EKG unremarkable Initial troponin 0.03, trended up to 0.87, increased to 1.90 this morning Cardiology consulted, appreciate assistance Planning for left heart catheterization today Continue aspirin Continue statin Type II diabetes mellitus Sliding scale insulin Hypokalemia Monitor and replace as needed Obesity clinically significant, no acute management needs DVT prophylaxis: Lovenox Diagnosis/Problems Diagnosis/Problems (1) NSTEMI (non-ST elevation myocardial infarction) Status: Acute (2) CAD (coronary artery disease) Status: Acute (3) HTN (hypertension) Status: Chronic (4) HLD (hyperlipidemia) Status: Chronic (5) T2DM (type 2 diabetes mellitus) Status: Chronic (6) Hypokalemia Status: Acute (7) Scoliosis Status: Chronic (8) Former smoker Status: Chronic (9) Obesity Status: Chronic Clinical Quality Measures AMI/AHF: ASA po Prior to arrival: Yes (4 81MG ASA PO) DVT/VTE Risk/Contraindication: Risk Factor Score Per Nursin RFS Level Per Nursing on Admit: 3=High NATHALY SMITH MD Dec 19, 2019 11:37
[2019-12-19] MEDS ORDERED: ALPR0.5T7 PO (14:48)
[2019-12-19] MEDS ORDERED: TRM50T PO (14:48)
[2019-12-19] MEDS: inSUlin ASPART (NovoLOG) 1 UNIT/0.01 ML (CHARGE PER UNIT) SC SCH ×2 (16:59→19:53)
[2019-12-19] MEDS: CARVEDILOL 12.5 MG (COREG) TABLET PO SCH (19:53)
[2019-12-20 03:03] VITALS: BP 136/81
[2019-12-20 03:43] LABS: HEMOGLOBIN 13.1 G/DL (13.3-17.7); MEAN PLATELET VOLUME 10.8 FL (7.4-10.4); WHITE BLOOD COUNT 11.1 10^3/uL (4.3-11.0)
[2019-12-20 04:04] LABS: CHLORIDE 106 MMOL/L (98-107)
[2019-12-20 04:05] LABS: POTASSIUM 3.6 MMOL/L (3.6-5.0); SODIUM 140 MMOL/L (135-145)
[2019-12-20 04:06] LABS: CALCIUM 9.1 MG/DL (8.5-10.1); GLUCOSE 140 MG/DL (70-105)
[2019-12-20 04:08] LABS: CARBON DIOXIDE 24 MMOL/L (21-32)
[2019-12-20 04:10] LABS: CREATININE SERUM 0.81 MG/DL (0.60-1.30); GFR ESTIMATED > 60
[2019-12-20 04:11] LABS: BUN/CREATININE RATIO 21
[2019-12-20] MEDS: inSUlin ASPART (NovoLOG) 1 UNIT/0.01 ML (CHARGE PER UNIT) SC SCH ×2 (05:20→11:55)
[2019-12-20] MEDS: NS IV 1000 ML 1,000 ML IV SCH ×2 (05:20)
[2019-12-20 07:38] VITALS: BP 132/76
[2019-12-20] MEDS: CARVEDILOL 12.5 MG (COREG) TABLET PO SCH (07:42)
--- NOTE | 2019-12-20 08:41 | Discharge Summary ---
Diagnosis/Chief Complaint Date of Admission Dec 18, 2019 at 20:55 Date of Discharge Admission Diagnosis NSTEMI Primary Care Tonio Hernandez MD Discharge Diagnosis (1) NSTEMI (non-ST elevation myocardial infarction) Status: Acute (2) CAD (coronary artery disease) Status: Acute (3) HTN (hypertension) Status: Chronic (4) HLD (hyperlipidemia) Status: Chronic (5) T2DM (type 2 diabetes mellitus) Status: Chronic (6) Hypokalemia Status: Acute (7) Scoliosis Status: Chronic (8) Former smoker Status: Chronic (9) Obesity Status: Chronic Discharge Summary Discharge Physical Exam Allergies: Uncoded Allergies: IV DYE (Allergy, Unknown, 12/18/19) Vitals & I&Os Vital Signs Date Time Temp Pulse Resp B/P (MAP) Pulse Ox O2 Delivery O2 Flow Rate FiO2 12/20/19 07:38 89 20 132/76 (94) 95 Room Air 12/20/19 03:03 36.3 General Appearance: No Apparent Distress, WD/WN Respiratory: Lungs Clear, No Respiratory Distress Cardiovascular: Regular Rate, Rhythm, No Murmur Gastrointestinal: Normal Bowel Sounds, Soft Neurologic/Psychiatric: Alert, Oriented x3 Hospital Course Pt was admitted to the hospital due to chest pain and was found to have a rising troponin. He was taken to the laboratory veterinarian on 12/19/19 where PCI was performed to the mid circumflex artery. He did well post cath and was able to be discharged home in stable condition to follow up with her primary care, Dr Worrell and cardiology, Dr Molina. He is to continue on DAPT with Plavix and aspirin. Labs (last 24 hrs) Laboratory Tests 12/19/19 12:16: Glucometer 146H 12/19/19 15:06: Glucometer 266H 12/19/19 19:50: Glucometer 346H 12/20/19 03:28: White Blood Count 11.1H, Red Blood Count 4.16L, Hemoglobin 13.1L, Hematocrit 39L , Mean Corpuscular Volume 93, Mean Corpuscular Hemoglobin 31, Mean Corpuscular Hemoglobin Concent 34, Red Cell Distribution Width 13.7, Platelet Count 186, Mean Platelet Volume 10.8H, Sodium Level 140, Potassium Level 3.6, Chloride Level 106, Carbon Dioxide Level 24, Anion Gap 10, Blood Urea Nitrogen 17, Creatinine 0.81, Estimat Glomerular Filtration Rate > 60, BUN/Creatinine Ratio 21, Glucose Level 140H, Calcium Level 9.1 Patient resulted labs reviewed. Pending Labs Laboratory Tests 12/20/19 03:28: White Blood Count 11.1, Red Blood Count 4.16, Hemoglobin 13.1, Hematocrit 39, Mean Corpuscular Volume 93, Mean Corpuscular Hemoglobin 31, Mean Corpuscular Hemoglobin Concent 34, Red Cell Distribution Width 13.7, Platelet Count 186, Mean Platelet Volume 10.8, Sodium Level 140, Potassium Level 3.6, Chloride Level 106, Carbon Dioxide Level 24, Anion Gap 10, Blood Urea Nitrogen 17, Creatinine 0.81, Estimat Glomerular Filtration Rate > 60, BUN/Creatinine Ratio 21, Glucose Level 140, Calcium Level 9.1 Imaging: Reviewed Imaging Report Discussion & Recommendations Discharge Planning: >30 minutes discharge planning Discharge Home Medications: Active Scripts Active Reported Tramadol HCl 50 Mg Tablet 100 Mg PO Q6H PRN Alprazolam 0.5 Mg Tablet 0.5 Mg PO Q8H PRN 7 Days Aspir 81 (Aspirin) 81 Mg Tablet.dr 81 Mg PO DAILY Metformin HCl 500 Mg Tablet 500 Mg PO BID Baclofen 10 Mg Tablet 10 Mg PO PRN HYDROcodone/APAP 10/325 TABLET (Acetaminophen/Hydrocodone Bitart) 1 Each Tablet 1 Each PO PRN Atorvastatin Calcium 40 Mg Tablet 40 Mg PO HS Bystolic (Nebivolol Hcl) 5 Mg Tablet 1 Each PO DAILY Hydrochlorothiazide 25 Mg Tablet 25 Mg PO DAILY Instructions to patient/family Please see electronic discharge instructions given to patient. Clinical Quality Measures AMI/AHF: ASA po Prior to arrival: Yes (4 81MG ASA PO) DVT/VTE Risk/Contraindication: Risk Factor Score Per Nursin RFS Level Per Nursing on Admit: 3=High Copy Copies To 1: LEAH WORRELL KATELYN M MD Dec 20, 2019 08:41
[2019-12-20] MEDS ORDERED: METF-397 PO (08:43)
[2019-12-20] MEDS ORDERED: CLOP75TA28 PO (08:43)
--- NOTE | 2019-12-20 08:44 | Discharge Inst-Simple/Standard ---
Discharge Inst-Standard Discharge Medications New, Converted or Re-Newed RX: Transmitted to Pharmacy Patient Instructions/Follow Up Plan of Care/Instructions/FU: Please continue to take your medications as written. Please follow up with your primary care doctor to follow up this hospital stay. Activity as Tolerated: Yes Discharge Diet: ADA Diet, Cardiac Diet Return to The Hospital For: Chest pain, shortness of breath, abdominal pain, bruising or bleeding at your incision, if you feel you are getting worse. Planned Outpatient Orders/Ref. Pneu Vac Indicated: Yes GAEL OWEN MD Dec 20, 2019 08:44
[2019-12-20] MEDS ORDERED: HYDROCHLOROTHIAZIDE 25 MG (HCTZ) TAB PO SCH ×2 (09:00)
[2019-12-20] MEDS ORDERED: ASPIRIN E.C. 81 MG (ECOTRIN) TAB PO SCH ×2 (09:00)
[2019-12-20] MEDS ORDERED: CLOPIDOGREL 75 MG (PLAVIX) TABLET PO SCH (09:00)
--- NOTE | 2019-12-20 11:14 | NUR ---
Pt is Sabian[employer] and recently anointed. Weather Analyst provided prayer and Communion.
--- NOTE | 2019-12-20 17:36 | Cardiology Progress Note ---
Cardiology SOAP Progress Note Objective: I&O/Vital Signs 12/20/19 12/20/19 12/20/19 12/20/19 07:07 07:38 08:54 09:12 Pulse 89 89 Resp 20 B/P (MAP) 132/76 (94) Pulse Ox 95 98 O2 Delivery Room Air Room Air Room Air 12/20/19 12:33 O2 Delivery Room Air 12/20/19 00:00 Intake Total 600 ml Output Total 800 ml Balance -200 ml Weight (Pounds): 145 Weight (Ounces): 0.0 Weight (Calculated Kilograms): 65.236020 Results/Procedures: Labs Laboratory Tests 12/19/19 19:50: Glucometer 346H 12/20/19 03:28: White Blood Count 11.1H, Red Blood Count 4.16L, Hemoglobin 13.1L, Hematocrit 39L , Mean Corpuscular Volume 93, Mean Corpuscular Hemoglobin 31, Mean Corpuscular Hemoglobin Concent 34, Red Cell Distribution Width 13.7, Platelet Count 186, Mean Platelet Volume 10.8H, Sodium Level 140, Potassium Level 3.6, Chloride Level 106, Carbon Dioxide Level 24, Anion Gap 10, Blood Urea Nitrogen 17, Creatinine 0.81, Estimat Glomerular Filtration Rate > 60, BUN/Creatinine Ratio 21, Glucose Level 140H, Calcium Level 9.1 12/20/19 12:01: Glucometer 126H A/P: Thank you for your consultation. Please call me if you have any questions. Elsie Brock MD, FACP, FACC, FSCAI, FHRS, CCDS Interventional Cardiology Cardiac Electrophysiology Vascular Medicine and Endovascular Interventions Clinical Quality Measures AMI/AHF: ASA po Prior to arrival: Yes (4 81MG ASA PO) Stevie BROCK MD Dec 20, 2019 17:36
== END 2019-12-20 12:35 | disposition home or self-care (01) ==
LOC: EDUNIT# 19:56 → ER 19:59 → CSD 20:55 → UNDOADMOB 20:55 → CSD 21:35 → UNDODISOB 12-20 12:35
PROVIDERS: ADMIT Internal Medicine; ATTEND Internal Medicine
DX: I21.4 Non-ST elevation (NSTEMI) myocardial infarction (principal); I10 Essential (primary) hypertension; E78.5 Hyperlipidemia, unspecified; E11.9 Type 2 diabetes mellitus without complications; E87.6 Hypokalemia; M41.9 Scoliosis, unspecified; I25.110 Atherosclerotic heart disease of native coronary artery with unstable angina pectoris; K21.9 Gastro-esophageal reflux disease without esophagitis; F41.9 Anxiety disorder, unspecified; E66.9 Obesity, unspecified; Z68.31 Body mass index [BMI] 31.0-31.9, adult; Z79.82 Long term (current) use of aspirin; Z79.899 Other long term (current) drug therapy; Z91.041 Radiographic dye allergy status; Z87.891 Personal history of nicotine dependence; Z80.1 Family history of malignant neoplasm of trachea, bronchus and lung
CPT/HCPCS: 71045; 80048; 80053 ×2; 80061; 82962 ×2; 83690; 83735; 83874; 83880; 84484 ×2; 85025 ×2; 85027; 85610; 85730; 93005 ×3; 93041; 93306; 93458; 99284; C1725; C1760; C1769; C1874; C1887; C1894; C9600; G0378; 36415

== ENCOUNTER 2022-04-26 19:25 | Emergency (ER) | payer MEDICARE ==
[~2022-04-26] VITALS: Ht 168 cm; Wt 88.5 kg
[~2022-04-26 19:25] MED LIST changes: +ALPR0.5T7 PO; +CLOP75TA28 PO
[2022-04-26] MEDS ORDERED: LOSA100T57 (19:38)
[2022-04-26] MEDS ORDERED: BRIMON0.2 (19:38)
[2022-04-26] MEDS ORDERED: NEBI5TAB11 (19:38)
[2022-04-26 19:51] LABS: BASOPHILS # (AUTO) 0.1 10^3/uL (0.0-0.1); BASOPHILS % (AUTO) 1 % (0-10); EOSINOPHILS # (AUTO) 0.2 10^3/uL (0.0-0.3); EOSINOPHILS % (AUTO) 3 % (0-10); HEMATOCRIT 45 % (40-54); HEMOGLOBIN 15.5 g/dL (13.3-17.7); LYMPHOCYTES # (AUTO) 1.8 10^3/uL (1.0-4.0); LYMPHOCYTES % (AUTO) 21 % (12-44); MEAN CORPUSCULAR HEMOGLOBIN 32 pg (25-34); MEAN CORPUSCULAR HGB CONC 35 g/dL (32-36); MEAN CORPUSCULAR VOLUME 94 fL (80-99); MEAN PLATELET VOLUME 10.7 fL (9.0-12.2); MONOCYTES # (AUTO) 0.7 10^3/uL (0.0-1.0); MONOCYTES % (AUTO) 9 % (0-12); NEUTROPHILS # (AUTO) 5.5 10^3/uL (1.8-7.8); NEUTROPHILS % (AUTO) 66 % (42-75); PLATELET COUNT 205 10^3/uL (130-400); WHITE BLOOD COUNT 8.3 10^3/uL (4.3-11.0)
--- NOTE | 2022-04-26 19:53 | ED Neurological Problem ---
General Chief Complaint: Neurological Problems Stated Complaint: ELEV BP/HEADACHE/CONFUSION Source: patient, family Exam Limitations: no limitations History of Present Illness Date Seen by Provider: Apr 26, 2022 Time Seen by Provider: 19:28 Initial Comments 77-year-old male with past medical history of hypertension, hyperlipidemia, CAD on Plavix coming in due to vision changes. A couple hours ago, he noted vision was feeling blurry, had a very mild headache at that time and his blood pressure was 200/100. He takes blood pressure medicine once a day in the morning, he did take it earlier today. Denies any chest pain, shortness of breath, weakness, numbness, voice changes, difficulty walking, or any other concerns. His symptoms completely resolved after roughly 15 minutes and have not recurred. States this has happened in the past. Is otherwise denying any other acute complaints Allergies and Home Medications Allergies Uncoded Allergies: IV DYE (Allergy, Unknown, 12/18/19) Patient Home Medication List Home Medication List Reviewed: Yes Alprazolam (Alprazolam) 0.5 Mg Tablet, 0.5 MG PO Q8H PRN for ANXIETY, (Reported) Entered as Reported by: RASHARD NGUYEN on 12/19/19 1448 Aspirin (Aspir 81) 81 Mg Tablet.dr, 81 MG PO DAILY, (Reported) Entered as Reported by: CALEB ROONEY on 02/26/17 0749 Atorvastatin Calcium (Atorvastatin Calcium) 40 Mg Tablet, 40 MG PO HS, (Reported) Entered as Reported by: CALEB ROONEY on 02/26/17 0749 Baclofen (Baclofen) 10 Mg Tablet, 10 MG PO PRN, (Reported) Entered as Reported by: CALEB ROONEY on 02/26/17 0749 Brimonidine Tartrate (Brimonidine Tartrate) 0.2 % Btl, (Reported) Entered as Reported by: TORIBIO GARCIA on 04/26/22 193 Last Action: New Order Clopidogrel Bisulfate (Clopidogrel) 75 Mg Tablet, 75 MG PO DAILY Prescribed by: GAEL OWEN on 12/20/19 0843 Hydrochlorothiazide (Hydrochlorothiazide) 25 Mg Tablet, 25 MG PO DAILY, (Reported) Entered as Reported by: TORIBIO GARCIA on 04/12/14 0406 Hydrocodone Bit/Acetaminophen (HYDROcodone/APAP 10/325 TABLET) 1 Each Tablet, 1 EACH PO PRN, (Reported) Entered as Reported by: CALEB ROONEY on 02/26/17 0749 Losartan Potassium (Losartan Potassium) 100 Mg Tablet, (Reported) Entered as Reported by: TORIBIO GARCIA on 04/26/221937 Last Action: New Order Metformin HCl (Metformin HCl) 500 Mg Tablet, 500 MG PO BID Prescribed by: GAEL OWEN on 12/20/19 0843 Nebivolol HCl (Nebivolol HCl) 5 Mg Tablet, (Reported) Entered as Reported by: TORIBIO GARCIA on 04/26/221937 Last Action: New Order Nebivolol Hcl (Bystolic) 5 Mg Tablet, 1 EACH PO DAILY, (Reported) Entered as Reported by: TORIBIO GARCIA on 04/12/14 0406 Tramadol HCl (Tramadol HCl) 50 Mg Tablet, 100 MG PO Q6H PRN for PAIN-MODERATE (5-7), (Reported) Entered as Reported by: RASHARD NGUYEN on 12/19/19 1448 Review of Systems Review of Systems Constitutional: No fever Eyes: See HPI Ears, Nose, Mouth, Throat: no symptoms reported Respiratory: no symptoms reported Cardiovascular: no symptoms reported Gastrointestinal: no symptoms reported Genitourinary: no symptoms reported Musculoskeletal: no symptoms reported Skin: no symptoms reported Psychiatric/Neurological: See HPI Past Ogqjjlh-Zwfysk-Aehgjj Hx Patient Social History Substance use?: No Immunizations Up To Date Tetanus Booster (TDap): Less than 5yrs PED Vaccines UTD: No Seasonal Allergies Seasonal Allergies: No Past Medical History Surgeries: Yes (TENDON REPAIR R ARM, L ARM SURGERIES,) Appendectomy, Gallbladder, Orthopedic Respiratory: No Cardiac: Yes (BBB) Heart Attack, Hypertension Neurological: No Reproductive Disorders: No Sexually Transmitted Disease: No HIV/AIDS: No Genitourinary: No Gastrointestinal: No Gastroesophageal Reflux Musculoskeletal: Yes (Polio) Endocrine: No Cancer: No Psychosocial: Yes Anxiety Integumentary: No Blood Disorders: No Adverse Reaction/Blood Tranf: No Family Medical History FH: COPD (chronic obstructive pulmonary disease) 19 MOTHER, Onset:60 years & older FH: lung cancer 19 FATHER, Onset:60 years & older Glaucoma G8 SISTER, Onset:Unknown Hypertension G8 BROTHER, Onset:Unknown G8 SISTER, Onset:Unknown TIAs G8 BROTHER, Onset:Unknown Physical Exam Vital Signs Vital Signs - First Documented 04/26/22 19:30 Temp 36.4 Pulse 103 Resp 16 B/P (MAP) 185/86 (119) Pulse Ox 97 O2 Delivery Room Air Capillary Refill : Height, Weight, BMI Height: 5'6.00" Weight: 145lbs. 0.0oz. 65.745159rf; 31.37 BMI Method:Stated General Appearance: WD/WN, no apparent distress HEENT: PERRL/EOMI, normal ENT inspection, pharynx normal Neck: non-tender, full range of motion, supple, normal inspection Respiratory: chest non-tender, lungs clear, normal breath sounds, no respiratory distress, no accessory muscle use Cardiovascular: regular rate, rhythm, no edema, no murmur Gastrointestinal: normal bowel sounds, non tender, soft; No distended, No guarding, No rebound Back: normal inspection, no CVA tenderness, no vertebral tenderness Extremities: normal range of motion, non-tender, normal inspection, no pedal edema, no calf tenderness, normal capillary refill 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, no motor/sensory deficits, alert, normal mood/affect, oriented x 3, other (Left arm weak from polio as a child, at baseline) Crainal Nerves: normal hearing, normal speech, PERRL Coordination/Gait: normal finger to nose, normal gait Motor/Sensory: no motor deficit, no sensory deficit, no pronator drift Skin: normal color, warm/dry Lymphatic: no adenopathy Stroke Onset of Symptoms Date of Onset of Symptoms: Apr 26, 2022 Time of Symptom Onset: 18:00 Onset of Symptoms: Yes NIH Stroke Scale Assessment Select: Initial Level of Consciousness: 0=Alert (0), Level of Consciousness- Questions: 0=Answers both month/age (0), LOC Commands: 0=Performs both tasks (0), Gaze: Normal (0), Visual Stoddard: 0=No visual loss (0), Facial Movement (Facial Paresis): 0=Normal symmetrical mnt (0), Motor Function-Arms Right: 0=No drift (0), Motor Function-Arms Left: 0=No drift (0), Motor Function-Legs Right: 0=No drift (0), Motor Function-Legs Left: 0=No drift (0), Limb Ataxia: 0=Absent (0), Sensory: 0=Normal:no loss (0), Best Language: 0=No aphasia (0), Dysarthria: 0=Normal (0), Extinction & Inattention: 0=No abnormality (0), Total: 0 Stroke Thrombolytic Exclusion Age 18 or Over: Yes TPA Contraindication: Yes IV - TPa Received IV - TPa Procedure Performed?: No Progress/Results/Core Measures Results/Orders Lab Results Laboratory Tests Test 04/26/22 19:39 Range/Units White Blood Count 8.3 4.3-11.0 10^3/uL Red Blood Count 4.78 4.30-5.52 10^6/uL Hemoglobin 15.5 13.3-17.7 g/dL Hematocrit 45 40-54 % Mean Corpuscular Volume 94 80-99 fL Mean Corpuscular Hemoglobin 32 25-34 pg Mean Corpuscular Hemoglobin Concent 35 32-36 g/dL Red Cell Distribution Width 12.9 10.0-14.5 % Platelet Count 205 130-400 10^3/uL Mean Platelet Volume 10.7 9.0-12.2 fL Immature Granulocyte % (Auto) 0 % Neutrophils (%) (Auto) 66 42-75 % Lymphocytes (%) (Auto) 21 12-44 % Monocytes (%) (Auto) 9 0-12 % Eosinophils (%) (Auto) 3 0-10 % Basophils (%) (Auto) 1 0-10 % Neutrophils # (Auto) 5.5 1.8-7.8 10^3/uL Lymphocytes # (Auto) 1.8 1.0-4.0 10^3/uL Monocytes # (Auto) 0.7 0.0-1.0 10^3/uL Eosinophils # (Auto) 0.2 0.0-0.3 10^3/uL Basophils # (Auto) 0.1 0.0-0.1 10^3/uL Immature Granulocyte # (Auto) 0.0 0.0-0.1 10^3/uL Prothrombin Time 12.9 12.2-14.7 SEC INR Comment 0.9 0.8-1.4 Activated Partial Thromboplast Time 24 24-35 SEC Sodium Level 139 135-145 MMOL/L Potassium Level 3.5 L 3.6-5.0 MMOL/L Chloride Level 99 98-107 MMOL/L Carbon Dioxide Level 26 21-32 MMOL/L Anion Gap 14 5-14 MMOL/L Blood Urea Nitrogen 19 H 7-18 MG/DL Creatinine 1.05 0.60-1.30 MG/DL Estimat Glomerular Filtration Rate 74 BUN/Creatinine Ratio 18 Glucose Level 198 H 70-105 MG/DL Calcium Level 10.8 H 8.5-10.1 MG/DL Corrected Calcium 10.4 H 8.5-10.1 MG/DL Total Bilirubin 0.4 0.1-1.0 MG/DL Aspartate Amino Transf (AST/SGOT) 18 5-34 U/L Alanine Aminotransferase (ALT/SGPT) 18 0-55 U/L Alkaline Phosphatase 114 40-136 U/L Troponin I < 0.028 <0.028 NG/ML Total Protein 7.6 6.4-8.2 GM/DL Albumin 4.5 3.2-4.5 GM/DL My Orders Orders - BRODERICK DIOP MD Cbc With Automated Diff (04/26/22 19:41) Protime With Inr (04/26/22 19:41) Partial Thromboplastin Time (04/26/22 19:41) Comprehensive Metabolic Panel (04/26/22 19:41) Troponin I [place] (04/26/22 19:41) Ua Culture If Indicated (04/26/22 19:41) Chest 1 View, Ap/Pa Only (04/26/22 19:41) Ekg Tracing (04/26/22 19:41) Ed Iv/Invasive Line Start (04/26/22 19:41) Vital Signs Stroke Patient Q15M (04/26/22 19:41) Ct Head Wo-R/O Stroke (04/26/22 19:41) O2 (04/26/22 19:41) Monitor-Rhythm Ecg Trace Only (04/26/22 19:41) Dysphagia Screening Tool Q10MX1 (04/26/22 19:41) Carvedilol Tablet (Coreg Tablet) (04/26/22 19:45) Medications Given in ED Current Medications Medications Dose Ordered Sig/Leticia Route Start Time Stop Time Status Last Admin Dose Admin Carvedilol 12.5 mg ONCE ONCE PO 04/26/22 19:45 04/26/22 19:46 DC 04/26/22 20:05 12.5 MG Vital Signs/I&O 04/26/22 19:30 Temp 36.4 Pulse 103 Resp 16 B/P (MAP) 185/86 (119) Pulse Ox 97 O2 Delivery Room Air Progress Progress Note : Progress Note I reviewed the patient's inpatient stay in November 2019 including his discharge summary. He had chest pain at the time and had a rising troponin with NSTEMI with cardiac cath with intervention. EKG at that time appears similar to current with no acute ischemic changes today on my interpretation. An IV was placed and basic labs were obtained including cardiac biomarkers. His labs are essentially unremarkable including normal creatinine, electrolytes essentially unremarkable, negative troponin. CT head negative for any obvious bleed on my interpretation. Chest x-ray clear with no acute changes. He was given oral carvedilol for slightly elevated blood pressure here which did trend down nicely. He continued to be asymptomatic on frequent reassessment while he re. Further questioning with his later brought up that he had been looking at a computer screen for an extended period of time watching a show, and its possible he had dry eye. After not watching the screen for a few minutes is when the blurry vision got better. This is certainly a possibility. He states he had carotid duplex ultrasound a couple weeks ago which was normal. He is already on aspirin and Plavix. He is not showing any signs of stroke at this time but certainly TIA is still on the differential but I think less likely now with a history. I will have him follow-up with his regular doctor as an outpatient. I believe he is otherwise stable for discharge with outpatient follow-up. He was sent home with strict return precautions Initial ECG Impression Date: Apr 26, 2022 Initial ECG Impression Time: 19:50 Initial ECG Rate: 64 Initial ECG Rhythm: Normal Sinus Comment Wide QRS with a right bundle branch block, no ST changes or T wave abnormalities, appears similar to prior EKG in November 2019 Diagnostic Imaging Diagonstic Imaging: Xray (chest), CT (head) Comments NAME: SHAHZAD MUNOZ [facility] REC#: [id number] PT STATUS: REG ER : 1945 PHYSICIAN: BRODERICK DIOP MD ADMIT DATE: 04/26/22/ER Draft Date of Exam:04/26/22 CHEST 1 VIEW, AP/PA ONLY INDICATION: Stroke, elevated blood pressure. COMPARISON: 12/18/2019. TECHNIQUE: Single radiograph of the chest dated April 26, 2022. FINDINGS: The cardiac silhouette appears severely enlarged, similar to the prior examination. No significant pulmonary vascular congestion. Severe curvature of the spine is again noted which slightly limits evaluation of this examination. Within limitations, no definite new focal pulmonary opacity. No large pleural effusion. No pneumothorax. Scattered osseous degenerative changes. Severe scoliosis. No definite acute osseous abnormality. IMPRESSION: Persistent cardiomegaly without definite pulmonary vascular congestion. Severe scoliosis is again noted which slightly limits evaluation. No definite new acute cardiopulmonary abnormality. Dictated on workstation # [id number] Dict: 04/26/221957 Trans: 04/26/222003 PJE [id number] Interpreted by: NOELLE PUCKETT MD Electronically signed by: PT STATUS: REG ER : 1945 PHYSICIAN: BRODERICK DIOP MD ADMIT DATE: 04/26/22/ER Draft Date of Exam:04/26/22 CT HEAD WO-R/O STROKE PROCEDURE: CT head wo r/o stroke. TECHNIQUE: Multiple contiguous axial images were obtained through the brain without the use of intravenous contrast. Auto Exposure Controls were utilized during the CT exam to meet ALARA standards for radiation dose reduction. INDICATION: 77-year-old female, hypertension, headache, confusion. Blurred vision of both thighs. CORRELATION: None FINDINGS: There are diffuse atrophic changes with prominence of the ventricles and sulci. There are scattered areas of decreased attenuation, nonspecific but likely changes of chronic small vessel ischemic disease. May be slightly more prominent left frontal lobe. There is otherwise normal alexander-white differentiation. No abnormal areas of attenuation to suggest edema from ischemia. No asymmetric hyperdense intracranial vascular sign. There is no midline shift or mass effect. No evidence for acute intracranial hemorrhage or abnormal extra-axial fluid collection. Bony calvarium is intact. Prior bilateral lens replacement. Paranasal sinuses are clear. Mastoid air cells also appear clear. IMPRESSION: 1. No CT evidence for acute intracranial abnormality. 2. Age-related atrophic changes with changes of small vessel ischemic disease. Dictated on workstation # [id number] Dict: 04/26/222003 Trans: 04/26/222006 DO [id number] Interpreted by: ARNULFO LACEY DO Electronically signed by: Departure Impression Primary Impression: Blurry vision, bilateral Disposition: 01 HOME, SELF-CARE Condition: Stable Departure-Patient Inst. Decision time for Depature: 20:43 Referrals: LEAH SHERWOOD DO (PCP/Family) Primary Care Physician Patient Instructions: Transient Ischemic Attack (DC) Add. Discharge Instructions: It is impossible to completely rule out something such as a TIA, although based on your history it does sound like this could have been driving from looking at the computer screen. Your labs and imaging are reassuring today, and it does not appear like you are having a stroke. This happened to you can try putting some eyedrops in your eye to lubricate it and see if that helps. If you have any vision loss or blacks out, weakness we cannot move 1 side of her body, new numbness we cannot feel 1 side of your body, worst headache of your life, I would want you to come out to the ER. Otherwise, please discuss with your regular doctor what happened today and see if they want to do any additional testing. It is good news that you had an ultrasound of your neck recently which was normal. BRODERICK DIOP MD Apr 26, 2022 19:53
--- NOTE | 2022-04-26 20:04 | Diagnostic Imaging Report ---
INDICATION: Stroke, elevated blood pressure. COMPARISON: 12/18/2019. TECHNIQUE: Single radiograph of the chest dated April 26, 2022. FINDINGS: The cardiac silhouette appears severely enlarged, similar to the prior examination. No significant pulmonary vascular congestion. Severe curvature of the spine is again noted which slightly limits evaluation of this examination. Within limitations, no definite new focal pulmonary opacity. No large pleural effusion. No pneumothorax. Scattered osseous degenerative changes. Severe scoliosis. No definite acute osseous abnormality. IMPRESSION: Persistent cardiomegaly without definite pulmonary vascular congestion. Severe scoliosis is again noted which slightly limits evaluation. No definite new acute cardiopulmonary abnormality. Dictated by: Dictated on workstation # [id number]
--- NOTE | 2022-04-26 20:07 | Diagnostic Imaging Report ---
PROCEDURE: CT head wo r/o stroke. TECHNIQUE: Multiple contiguous axial images were obtained through the brain without the use of intravenous contrast. Auto Exposure Controls were utilized during the CT exam to meet ALARA standards for radiation dose reduction. INDICATION: 77-year-old female, hypertension, headache, confusion. Blurred vision of both thighs. CORRELATION: None FINDINGS: There are diffuse atrophic changes with prominence of the ventricles and sulci. There are scattered areas of decreased attenuation, nonspecific but likely changes of chronic small vessel ischemic disease. May be slightly more prominent left frontal lobe. There is otherwise normal alexander-white differentiation. No abnormal areas of attenuation to suggest edema from ischemia. No asymmetric hyperdense intracranial vascular sign. There is no midline shift or mass effect. No evidence for acute intracranial hemorrhage or abnormal extra-axial fluid collection. Bony calvarium is intact. Prior bilateral lens replacement. Paranasal sinuses are clear. Mastoid air cells also appear clear. IMPRESSION: 1. No CT evidence for acute intracranial abnormality. 2. Age-related atrophic changes with changes of small vessel ischemic disease. Dictated by: Dictated on workstation # [id number]
[2022-04-26 20:11] LABS: INR 0.9 (0.8-1.4); PROTHROMBIN TIME PATIENT 12.9 SEC (12.2-14.7)
[2022-04-26 20:14] LABS: ALANINE AMINOTRANSFERASE 18 U/L (0-55); ALBUMIN 4.5 GM/DL (3.2-4.5); ALKALINE PHOSPHATASE 114 U/L (40-136); BILIRUBIN,TOTAL 0.4 MG/DL (0.1-1.0); BUN/CREATININE RATIO 18; CALCIUM 10.8 MG/DL (8.5-10.1); CARBON DIOXIDE 26 MMOL/L (21-32); CHLORIDE 99 MMOL/L (98-107); CREATININE SERUM 1.05 MG/DL (0.60-1.30); GFR ESTIMATED 74; GLUCOSE 198 MG/DL (70-105); POTASSIUM 3.5 MMOL/L (3.6-5.0); SODIUM 139 MMOL/L (135-145); TOTAL PROTEIN 7.6 GM/DL (6.4-8.2)
[2022-04-26 20:46] VITALS: BP 161/81
== END 2022-04-26 20:47 | disposition home or self-care (01) ==
LOC: EDUNIT# 19:25 → ER 19:28
DX: H53.8 Other visual disturbances (principal); I10 Essential (primary) hypertension; I25.10 Atherosclerotic heart disease of native coronary artery without angina pectoris; Z98.61 Coronary angioplasty status; Z79.02 Long term (current) use of antithrombotics/antiplatelets
CPT/HCPCS: 36415; 70450; 71045; 80053; 84484; 85025; 85610; 85730; 93005; 93041

== ENCOUNTER 2022-06-18 09:03 | Emergency (ER) | payer MEDICARE ==
[~2022-06-18] VITALS: Ht 167.7 cm; Wt 86.1 kg
--- NOTE | 2022-06-18 09:47 | ED Neurological Problem ---
General Chief Complaint: Neurological Problems Stated Complaint: RT SIDE NUMBNESS Nursing Triage Note: PT AMB TO RM 10 WITH WITH C/O R ARM AND LEG NUMBNESS THIS MORNING AFTER WAKING UP. PT WOKE UP AROUND 0600. PT DENIES PAIN AND SAYS THE NUMBNESS HAS GOTTEN BETTER SINCE ARRIVING TO ER Source: patient, family () History of Present Illness Date Seen by Provider: Jun 18, 2022 Time Seen by Provider: 09:37 Initial Comments Patient is a 77yo male who presents to the ED with a complaint of Right arm and leg "numbness". He states he woke up around 2am with these symptoms, did not note any feelings of weakness or other concerns and was able to go back to sleep. He then got up about 6:30/7am with persistent symptoms and as the morning has continues he feels like the right side of his face (cheek area) feels a little numb as well. No headache, visual changes, speech or swallowing difficulties. He denies feelings of weakness in the right side. 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 He denies chest pain, shortness of breath. No n/v/d urinary complaints. He had similar complaints of paresthesia about 6 months ago and reports eval by his PCP and Dr Molina (his pill maker). He cannot recall an echo however or carotid ultra sounds. No recent illnesses. He thinks maybe as he has been here his symptoms may be a little better. He is on 75mg Plavix daily as well as daily baby aspirin. Timing/Duration: 4-6 hours Severity: mild Associated Symptoms: paresthesia ("numbness right face, right arm and leg) Allergies and Home Medications Allergies Uncoded Allergies: IV DYE (Allergy, Unknown, 12/18/19) Patient Home Medication List Home Medication List Reviewed: Yes Alprazolam (Alprazolam) 0.5 Mg Tablet, 0.5 MG PO Q8H PRN for ANXIETY, (Reported) Entered as Reported by: RASHARD NGYUEN on 12/19/19 1448 Aspirin (Aspir 81) 81 Mg Tablet.dr, 81 MG PO DAILY, (Reported) Entered as Reported by: CALEB ROONEY on 02/26/17 0749 Atorvastatin Calcium (Atorvastatin Calcium) 40 Mg Tablet, 40 MG PO HS, (Repor nancy) Entered as Reported by: CALEB ROONEY on 02/26/17748 Baclofen (Baclofen) 10 Mg Tablet, 10 MG PO PRN, (Reported) Entered as Reported by: CALEB ROONEY on 02/26/17748 Brimonidine Tartrate (Brimonidine Tartrate) 0.2 % Btl, (Reported) Entered as Reported by: TORIBIO GARCIA on 04/26/221937 Clopidogrel Bisulfate (Clopidogrel) 75 Mg Tablet, 75 MG PO DAILY Prescribed by: GAEL OWEN on 12/20/19 08 Clopidogrel Bisulfate (Clopidogrel) 75 Mg Tablet, 150 MG PO DAILY Prescribed by: TRENT OSCAR on 06/18/22 1348 Hydrochlorothiazide (Hydrochlorothiazide) 25 Mg Tablet, 25 MG PO DAILY, (Reported) Entered as Reported by: TORIBIO GARCIA on 04/12/14405 Hydrocodone Bit/Acetaminophen (HYDROcodone/APAP 10/325 TABLET) 1 Each Tablet, 1 EACH PO PRN, (Reported) Entered as Reported by: CALEB ROONEY on 02/26/17748 Losartan Potassium (Losartan Potassium) 100 Mg Tablet, (Reported) Entered as Reported by: TORIBIO GARCIA on 04/26/221937 Metformin HCl (Metformin HCl) 500 Mg Tablet, 500 MG PO BID Prescribed by: GAEL OWEN on 12/20/19 0843 Nebivolol HCl (Nebivolol HCl) 5 Mg Tablet, (Reported) Entered as Reported by: TORIBIO GARCIA on 04/26/221937 Nebivolol Hcl (Bystolic) 5 Mg Tablet, 1 EACH PO DAILY, (Reported) Entered as Reported by: TORIBIO GARCIA on 04/12/14405 Tramadol HCl (Tramadol HCl) 50 Mg Tablet, 100 MG PO Q6H PRN for PAIN-MODERATE (5-7), (Reported) Entered as Reported by: RASHARD NGUYEN on 12/19/19 1448 Review of Systems Review of Systems Constitutional: see HPI Eyes: No Symptoms Reported Ears, Nose, Mouth, Throat: no symptoms reported Respiratory: no symptoms reported Cardiovascular: no symptoms reported Gastrointestinal: no symptoms reported Genitourinary: no symptoms reported Musculoskeletal: no symptoms reported Skin: no symptoms reported Psychiatric/Neurological: Numbness All Other Systems Reviewed Negative Unless Noted: Yes Past Rfkdrdl-Otjjoc-Ixrqjx Hx Patient Social History Tobacco Use?: No Use of E-Cig and/or Vaping dev: No Substance use?: No Alcohol Use?: Yes Alcohol Frequency: Rarely Pt feels they are or have been: No Immunizations Up To Date Tetanus Booster (TDap): Less than 5yrs PED Vaccines UTD: No Influenza Vaccine Up-to-Date: No; Not Current First/Initial COVID19 Vaccinat: x5 Second COVID19 Vaccination Wilber: x5 Third COVID19 Vaccination Date: x5 Seasonal Allergies Seasonal Allergies: No Past Medical History Surgery/Hospitalization HX: appy, chad, ortho, htn, gerd, anxiety, scoliosis, niddm, chronic pain, polio, TIA, STENTS Surgeries: Yes (TENDON REPAIR R ARM, L ARM SURGERIES,) Appendectomy, Gallbladder, Orthopedic Respiratory: No Cardiac: Yes (BBB) Heart Attack, Hypertension Neurological: No Reproductive Disorders: No Sexually Transmitted Disease: No HIV/AIDS: No Genitourinary: No Gastrointestinal: No Gastroesophageal Reflux Musculoskeletal: Yes (Polio) Endocrine: No Cancer: No Psychosocial: Yes Anxiety Integumentary: No Blood Disorders: No Adverse Reaction/Blood Tranf: No Family Medical History FH: COPD (chronic obstructive pulmonary disease) 19 MOTHER, Onset:60 years & older FH: lung cancer 19 FATHER, Onset:60 years & older Glaucoma G8 SISTER, Onset:Unknown Hypertension G8 BROTHER, Onset:Unknown G8 SISTER, Onset:Unknown TIAs G8 BROTHER, Onset:Unknown Physical Exam Vital Signs Vital Signs - First Documented 06/18/22 09:15 Temp 36.7 Pulse 77 Resp 20 B/P (MAP) 148/73 (98) Capillary Refill : Height, Weight, BMI Height: 5'6.00" Weight: 145lbs. 0.0oz. 65.864954og; 30.00 BMI Method:Stated General Appearance: WD/WN, no apparent distress HEENT: PERRL/EOMI Respiratory: lungs clear, normal breath sounds, no respiratory distress, no accessory muscle use Cardiovascular: regular rate, rhythm, systolic murmur Gastrointestinal: normal bowel sounds, non tender, soft Extremities: other (Post polio syndrome affecting LUE; contracture of hand) Stroke NIH Stroke Scale Assessment Gaze: Normal (0), Total: Stroke Thrombolytic Exclusion Age 18 or Over: Yes Progress/Results/Core Measures Results/Orders Lab Results Laboratory Tests Test 06/18/22 09:28 06/18/22 10:18 06/18/22 10:22 Range/Units White Blood Count 8.0 4.3-11.0 10^3/uL Red Blood Count 4.73 4.30-5.52 10^6/uL Hemoglobin 15.4 13.3-17.7 g/dL Hematocrit 45 40-54 % Mean Corpuscular Volume 94 80-99 fL Mean Corpuscular Hemoglobin 33 25-34 pg Mean Corpuscular Hemoglobin Concent 35 32-36 g/dL Red Cell Distribution Width 13.3 10.0-14.5 % Platelet Count 181 130-400 10^3/uL Mean Platelet Volume 11.0 9.0-12.2 fL Immature Granulocyte % (Auto) 0 % Neutrophils (%) (Auto) 73 42-75 % Lymphocytes (%) (Auto) 16 12-44 % Monocytes (%) (Auto) 7 0-12 % Eosinophils (%) (Auto) 3 0-10 % Basophils (%) (Auto) 1 0-10 % Neutrophils # (Auto) 5.8 1.8-7.8 10^3/uL Lymphocytes # (Auto) 1.2 1.0-4.0 10^3/uL Monocytes # (Auto) 0.6 0.0-1.0 10^3/uL Eosinophils # (Auto) 0.3 0.0-0.3 10^3/uL Basophils # (Auto) 0.1 0.0-0.1 10^3/uL Immature Granulocyte # (Auto) 0.0 0.0-0.1 10^3/uL Prothrombin Time 12.8 12.2-14.7 SEC INR Comment 0.9 0.8-1.4 Activated Partial Thromboplast Time 27 24-35 SEC D-Dimer 0.23 0.00-0.49 UG/ML Sodium Level 138 135-145 MMOL/L Potassium Level 3.6 3.6-5.0 MMOL/L Chloride Level 99 98-107 MMOL/L Carbon Dioxide Level 23 21-32 MMOL/L Anion Gap 16 H 5-14 MMOL/L Blood Urea Nitrogen 12 7-18 MG/DL Creatinine 0.81 0.60-1.30 MG/DL Estimat Glomerular Filtration Rate 91 BUN/Creatinine Ratio 15 Glucose Level 122 H 70-105 MG/DL Calcium Level 10.7 H 8.5-10.1 MG/DL Corrected Calcium 10.4 H 8.5-10.1 MG/DL Total Bilirubin 0.7 0.1-1.0 MG/DL Aspartate Amino Transf (AST/SGOT) 25 5-34 U/L Alanine Aminotransferase (ALT/SGPT) 28 0-55 U/L Alkaline Phosphatase 105 40-136 U/L Troponin I < 0.028 <0.028 NG/ML Total Protein 7.6 6.4-8.2 GM/DL Albumin 4.4 3.2-4.5 GM/DL Glucometer 111 H 70-110 MG/DL Urine Color YELLOW Urine Clarity CLEAR Urine pH 7.5 5-9 Urine Specific [place] 1.010 L 1.016-1.022 Urine Protein NEGATIVE NEGATIVE Urine Glucose (UA) NEGATIVE NEGATIVE Urine Ketones NEGATIVE NEGATIVE Urine Nitrite NEGATIVE NEGATIVE Urine Bilirubin NEGATIVE NEGATIVE Urine Urobilinogen 0.2 < = 1.0 MG/DL Urine Leukocyte Esterase NEGATIVE NEGATIVE Urine RBC (Auto) NEGATIVE NEGATIVE Urine RBC NONE /HPF Urine WBC NONE /HPF Urine Crystals PRESENT H /LPF Urine Amorphous Sediment RARE LEANDRA PHOSPHATE H /LPF Urine Bacteria NEGATIVE /HPF Urine Casts NONE /LPF Urine Mucus NEGATIVE /LPF Urine Culture Indicated NO My Orders Orders - TRENT OSCAR MD Cbc With Automated Diff (06/18/22 09:47) Protime With Inr (06/18/22:47) Partial Thromboplastin Time (06/18/22:47) Comprehensive Metabolic Panel (06/18/22:47) Fibrin Degradation Products (06/18/22 09:47) Troponin I Drew (06/18/22 09:47) Ua Culture If Indicated (06/18/22 09:47) Chest 1 View, Ap/Pa Only (06/18/22:47) Ekg Tracing (06/18/22:47) Accucheck Stat ONCE (06/18/22:47) Ed Iv/Invasive Line Start (06/18/22 09:47) Ed Iv/Invasive Line Start (06/18/22 09:47) Vital Signs Stroke Patient Q15M (06/18/22 09:47) Ct Head Wo-R/O Stroke (06/18/22 09:47) O2 (06/18/22 09:47) Intake & Output 06,14,22 (06/18/22 09:47) Monitor-Rhythm Ecg Trace Only (06/18/22 09:47) Dysphagia Screening Tool Q10MX1 (06/18/22 09:47) Post Thrombolytic Adminstratio (06/18/22 09:47) Ct Angio Head/Neck (06/18/22 11:25) Ns Iv 1000 Ml (Sodium Chloride 0.9%) (06/18/22 11:25) Iohexol Injection (Omnipaque 350 Mg/Ml 1 (06/18/22 11:30) Ns (Ivpb) (Sodium Chloride 0.9% Ivpb Bag (06/18/22 11:30) Diphenhydramine Injection (Benadryl Inje (06/18/22 11:45) Famotidine Injection (Pepcid Injection) (06/18/22 11:45) Methylprednisolone Sod Succ (Solu-Medrol (06/18/22 11:45) Medications Given in ED Vital Signs/I&O 06/18/22 06/18/22 09:15 13:54 Temp 36.7 36.7 Pulse 77 60 Resp 20 20 B/P (MAP) 148/73 (98) 138/72 Blood Pressure Mean: 98 Progress Progress Note : Time: 13:32 Progress Note Patient seen and evaluated by me. Eval today includes physical exam, "stroke protocol" including CBC, CH12, coags, ddimer, Chest xray, ekg, CT head without contrast, CT angio Head and neck. Physical exam is pertinent for WDWN male in NAD. VSS, slightly elevated BP. acquired dysfunction LUE (contracture of hand and arm) due to post polio syndrome. Scoliosis limiting upper body movement and posture. Subjective decreased sensation of LUE and LLE. No motor weakness in any extremity. Gait at baseline. CN intact. Heart reg with KELSY. Lungs clear, abd benign. No LE edema. DDx based on H&P TIA vs Stroke. peripheral neuropathy. Labs, imaging, EKG reviewed. CBC completely normal, CH 12 glucose 122 otherwise normal. Coags and ddimer normal. UA shows rare crystals otherwise normal. EKG NSR without concerning findings. CXR, CT head without and CTA head and neck also with no concerning findings for acute stroke, head bleed or intravascular thrombus. Patient was treated prior to CT with solumedrol, benadryl and IV pepcid due to concerns for IV dye allergy "itching/rash". I called the patient's PCP - Dr Worrell and discussed case with him. Recommended continuing aspirin, doubling plavix and scheduled for [address] Worrell was concerned for possibly intermittent Afib causing symptoms. Patient stated he was "90%" better as far as numbness on discharge. He remained with stable VS. He had no further complaints. Likely TIA, Dr Worrell stated that if numbness persisted to 72h he would order outpatient MRI. Discussed all of this with the family and they are agreeable and comfortable with the plan of care. All questions are sought and answered. I feel like he is stable for discharge. Rx for increased plavix dose sent to his local pharmacy. Strict return precautions provided. Initial ECG Impression Date: Jun 18, 2022 Initial ECG Impression Time: 10:00 Initial ECG Rate: 61 Initial ECG Rhythm: Normal Sinus Initial ECG Intervals VT interval 207 QRS 170 QTc 411 Initial ECG Impression: Nonspecific Changes Diagnostic Imaging Diagonstic Imaging: Xray Plain Films/CT/US/NM/MRI: chest Comments [facility] [place], [place] NAME: SHAHZAD MUNOZ [facility] REC#: [id number] PT STATUS: REG ER : 1945 PHYSICIAN: TRENT OSCAR MD ADMIT DATE: 06/18/22/ER Draft Date of Exam:06/18/22 CHEST 1 VIEW, AP/PA ONLY INDICATION: Right-sided numbness Frontal chest obtained at 10:22 a.m. and compared with 04/26/2022. There is cardiomegaly. There is no focal infiltrate or pneumothorax or pleural fluid. There is marked dextroscoliotic change. IMPRESSION: No acute process in the chest. Dictated on workstation # [id number] Dict: 06/18/22 1030 Trans: 06/18/22 1035 CV [id number] Interpreted by: SUDHA BACON MD Electronically signed by: Diagonstic Imaging: CT Comments [facility] [place], [place] NAME: SHAHZAD MUNOZ [facility] REC#: [id number] PT STATUS: REG ER : 1945 PHYSICIAN: TRENT OSCAR MD ADMIT DATE: 06/18/22/ER Draft Date of Exam:06/18/22 CT HEAD WO-R/O STROKE PROCEDURE: CT head wo r/o stroke. TECHNIQUE: Multiple contiguous axial images were obtained through the brain without the use of intravenous contrast. Auto Exposure Controls were utilized during the CT exam to meet ALARA standards for radiation dose reduction. INDICATION: Neurologic deficit. Right arm numbness. COMPARISON: 04/26/2022. FINDINGS: Moderate generalized parenchymal volume loss. 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 No CT evidence of an acute territorial infarction. No intracranial hemorrhage, mass effect, hydrocephalus or extra-axial fluid collections. Osseous structures are intact. Mild mucosal thickening in the maxillary sinuses. The mastoids are clear. IMPRESSION: 1. No acute intracranial CT findings. 2. Moderate generalized parenchymal volume loss and advanced leukoaraiosis is similar to the prior exam. Dictated on workstation # [id number] Dict: 06/18/22 1025 Trans: 06/18/22 1028 [facility] [id number] Interpreted by: JANUSZ VILLANUEVA MD Electronically signed by: Diagonstic Imaging: CT Comments [facility] [place], [place] NAME: SHAHZAD MUNOZ [facility] REC#: [id number] PT STATUS: REG ER : 1945 PHYSICIAN: TRENT OSCAR MD ADMIT DATE: 06/18/22/ER Signed Date of Exam:06/18/22 CT ANGIO HEAD/NECK PROCEDURE: CT angiography of the head and CT angiography of the neck with and without contrast. TECHNIQUE: Contiguous noncontrast images were obtained from the skull base through the vertex. After intravenous contrast administration, helical CT angiography of the neck was performed. Source data was reformatted into 3D MIP projections. Delayed post contrast acquisition was also obtained. Auto Exposure Controls were utilized during the CT exam to meet ALARA standards for radiation dose reduction. INDICATION: Right-sided facial numbness. Upper and lower extremity weakness. COMPARISON: Noncontrast head from earlier same day FINDINGS: CTA NECK: Aorta: Aortic arch is normal, with standard three vessel branching pattern. Anterior Circulation: The origin of the bilateral common carotid arteries are patent. No stenosis of the common carotid arteries in the neck. No significant stenosis of the internal carotid arteries per NASCET criteria. The cervical segments of the bilateral ICAs are patent. The proximal external carotid arteries are patent and without significant stenosis. Posterior Circulation: Origins of the bilateral vertebral arteries are normal. The right vertebral artery is dominant, but both arteries opacify throughout the neck. The proximal extraousseous, intrasosseous, and distal extraosseous segments of the vertebral arteries are patent without dissection or stenosis. Non-vascular: No cervical lymphadenopathy. The airway is patent. No evidence of mucosal-based mass lesion in the pharynx. A 2.2 x 1.7 cm left thyroid nodule appears part solid and cystic with internal calcifications. Salivary glands are normal. Mild centrilobular emphysema within the lung apices. Moderate degenerative changes within the cervical spine. CTA HEAD: Anterior Circulation: The distal internal carotid arteries are patent. The bilateral M1 and M2 segments of the middle cerebral arteries are patent and without stenosis. The bilateral M3 and M4 segments are symmetric in size and number. The anterior cerebral arteries are patent and without stenosis. Anterior communicating artery is patent. No saccular aneurysm in the anterior circulation. Posterior Circulation: The bilateral intracranial segments of the vertebral arteries are patent. The basilar artery is patent and without stenosis. The posterior cerebral arteries are patent. Bilateral posterior communicating arteries are patent and without aneurysm. No saccular aneurysm in the posterior circulation. Post Contrast Head: No pathologic enhancement on delayed post-contrast enhancement. Patent dural venous sinuses. IMPRESSION: 1. No intracranial large vessel occlusion or saccular aneurysm. 2. No arterial occlusion or stenosis in the major neck arteries. 3. Indeterminate left thyroid nodule. Nonemergent thyroid ultrasound is recommended for further workup in the future. Dictated by: Dictated on workstation # [id number] Dict: 06/18/22 1230 Trans: 06/18/22 1238 [facility] [id number] Interpreted by: CARLIE TESFAYE MD Electronically signed by: CARLIE TESFAYE MD 06/18/22 1238 Departure Communication (Admissions) Time/Spoke to Consulting Phy: 13:[address] Worrell Impression Primary Impression: Numbness and tingling of right arm and leg Disposition: HOME, SELF-CARE Condition: Stable Departure-Patient Inst. Decision time for Depature: 13:46 Referrals: LEAH WORRELL DO (PCP/Family) Primary Care Physician Patient Instructions: Paresthesia (DC) Add. Discharge Instructions: Once you are discharged from the emergency department you need to go to registration and they will get your 21-day event monitor placed today. Please call for a follow-up appointment with Dr. Serrano. We are going to double your clopidogrel from 75 mg to [address] Worrell will continue to manage this. Keep taking your daily baby aspirin. If you develop any further numbness to your arm leg or face especially associated with severe headache or weakness on the right side please come back to the emergency room immediately for reevaluation. Scripts Clopidogrel Bisulfate (Clopidogrel) 75 Mg Tablet 150 MG PO DAILY, #30 TAB Prov: TRENT OSCAR MD 06/18/22 Copy Copies To 1: LEAH WORRELL KATHRYN M MD Jun 18, 2022 09:47
[2022-06-18 10:20] LABS: BASOPHILS # (AUTO) 0.1 10^3/uL (0.0-0.1); BASOPHILS % (AUTO) 1 % (0-10); EOSINOPHILS # (AUTO) 0.3 10^3/uL (0.0-0.3); EOSINOPHILS % (AUTO) 3 % (0-10); HEMATOCRIT 45 % (40-54); HEMOGLOBIN 15.4 g/dL (13.3-17.7); LYMPHOCYTES # (AUTO) 1.2 10^3/uL (1.0-4.0); LYMPHOCYTES % (AUTO) 16 % (12-44); MEAN CORPUSCULAR HEMOGLOBIN 33 pg (25-34); MEAN CORPUSCULAR HGB CONC 35 g/dL (32-36); MEAN CORPUSCULAR VOLUME 94 fL (80-99); MONOCYTES # (AUTO) 0.6 10^3/uL (0.0-1.0); MONOCYTES % (AUTO) 7 % (0-12); NEUTROPHILS # (AUTO) 5.8 10^3/uL (1.8-7.8); NEUTROPHILS % (AUTO) 73 % (42-75); PLATELET COUNT 181 10^3/uL (130-400)
--- NOTE | 2022-06-18 10:28 | Diagnostic Imaging Report ---
PROCEDURE: CT head wo r/o stroke. TECHNIQUE: Multiple contiguous axial images were obtained through the brain without the use of intravenous contrast. Auto Exposure Controls were utilized during the CT exam to meet ALARA standards for radiation dose reduction. INDICATION: Neurologic deficit. Right arm numbness. COMPARISON: 04/26/2022. FINDINGS: Moderate generalized parenchymal volume loss. 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 No CT evidence of an acute territorial infarction. No intracranial hemorrhage, mass effect, hydrocephalus or extra-axial fluid collections. Osseous structures are intact. Mild mucosal thickening in the maxillary sinuses. The mastoids are clear. IMPRESSION: 1. No acute intracranial CT findings. 2. Moderate generalized parenchymal volume loss and advanced leukoaraiosis is similar to the prior exam. Dictated by: Dictated on workstation # [id number]
[2022-06-18 10:33] LABS: BILIRUBIN,URINE NEGATIVE (NEGATIVE); CLARITY,URINE CLEAR; COLOR,URINE YELLOW; GLUCOSE, URINE (UA) NEGATIVE (NEGATIVE); KETONES,URINE NEGATIVE (NEGATIVE); LEUKOCYTE ESTERASE ,URINE NEGATIVE (NEGATIVE); NITRITE,URINE NEGATIVE (NEGATIVE); PH,URINE 7.5 (5-9); PROTEIN,URINE NEGATIVE (NEGATIVE)
[2022-06-18 10:33] LABS: ALBUMIN 4.4 GM/DL (3.2-4.5)
[2022-06-18 10:34] LABS: CHLORIDE 99 MMOL/L (98-107); POTASSIUM 3.6 MMOL/L (3.6-5.0); SODIUM 138 MMOL/L (135-145)
[2022-06-18 10:35] LABS: CALCIUM 10.7 MG/DL (8.5-10.1)
--- NOTE | 2022-06-18 10:35 | Diagnostic Imaging Report ---
INDICATION: Right-sided numbness Frontal chest obtained at 10:22 a.m. and compared with 04/26/2022. There is cardiomegaly. There is no focal infiltrate or pneumothorax or pleural fluid. There is marked dextroscoliotic change. IMPRESSION: No acute process in the chest. Dictated by: Dictated on workstation # [id number]
[2022-06-18 10:36] LABS: GLUCOSE 122 MG/DL (70-105); TOTAL PROTEIN 7.6 GM/DL (6.4-8.2)
[2022-06-18 10:37] LABS: CARBON DIOXIDE 23 MMOL/L (21-32)
[2022-06-18 10:38] LABS: BILIRUBIN,TOTAL 0.7 MG/DL (0.1-1.0)
[2022-06-18 10:39] LABS: ALKALINE PHOSPHATASE 105 U/L (40-136)
[2022-06-18 10:40] LABS: CREATININE SERUM 0.81 MG/DL (0.60-1.30); GFR ESTIMATED 91
[2022-06-18 10:41] LABS: BUN/CREATININE RATIO 15
[2022-06-18 10:43] LABS: ALANINE AMINOTRANSFERASE 28 U/L (0-55); FIBRIN DEGRADATION PRODUCTS 0.23 UG/ML (0.00-0.49); INR 0.9 (0.8-1.4); PROTHROMBIN TIME PATIENT 12.8 SEC (12.2-14.7)
[2022-06-18 10:47] LABS: AMORPHOUS SEDIMENT,UR RARE AMOR PHOSPHATE /LPF; BACTERIA,URINE NEGATIVE /HPF
[2022-06-18] MEDS ORDERED: NS IV 1000 ML 1,000 ML IV STA (11:25)
[2022-06-18] MEDS ORDERED: NS 100 ML (IVPB) BAG IV ONE (11:30)
[2022-06-18] MEDS ORDERED: IOHEXOL 350 MG/ML 100 ML (OMNIPAQUE 350) VIAL IV ONE (11:30)
[2022-06-18] MEDS ORDERED: diphenhydrAMINE 50 MG/ML INJ (BENADRYL) IVP ONE (11:45)
[2022-06-18] MEDS ORDERED: methylPREDNISolone 125 MG (Solu-MEDROL) VIAL IVP ONE (11:45)
[2022-06-18] MEDS ORDERED: FAMOTIDINE 20MG/2ML IV (PEPCID) IVP ONE (11:45)
--- NOTE | 2022-06-18 12:39 | Diagnostic Imaging Report ---
PROCEDURE: CT angiography of the head and CT angiography of the neck with and without contrast. TECHNIQUE: Contiguous noncontrast images were obtained from the skull base through the vertex. After intravenous contrast administration, helical CT angiography of the neck was performed. Source data was reformatted into 3D MIP projections. Delayed post contrast acquisition was also obtained. Auto Exposure Controls were utilized during the CT exam to meet ALARA standards for radiation dose reduction. INDICATION: Right-sided facial numbness. Upper and lower extremity weakness. COMPARISON: Noncontrast head from earlier same day FINDINGS: CTA NECK: Aorta: Aortic arch is normal, with standard three vessel branching pattern. Anterior Circulation: The origin of the bilateral common carotid arteries are patent. No stenosis of the common carotid arteries in the neck. No significant stenosis of the internal carotid arteries per NASCET criteria. The cervical segments of the bilateral ICAs are patent. The proximal external carotid arteries are patent and without significant stenosis. Posterior Circulation: Origins of the bilateral vertebral arteries are normal. The right vertebral artery is dominant, but both arteries opacify throughout the neck. The proximal extraousseous, intrasosseous, and distal extraosseous segments of the vertebral arteries are patent without dissection or stenosis. Non-vascular: No cervical lymphadenopathy. The airway is patent. No evidence of mucosal-based mass lesion in the pharynx. A 2.2 x 1.7 cm left thyroid nodule appears part solid and cystic with internal calcifications. Salivary glands are normal. Mild centrilobular emphysema within the lung apices. Moderate degenerative changes within the cervical spine. CTA HEAD: Anterior Circulation: The distal internal carotid arteries are patent. The bilateral M1 and M2 segments of the middle cerebral arteries are patent and without stenosis. The bilateral M3 and M4 segments are symmetric in size and number. The anterior cerebral arteries are patent and without stenosis. Anterior communicating artery is patent. No saccular aneurysm in the anterior circulation. Posterior Circulation: The bilateral intracranial segments of the vertebral arteries are patent. The basilar artery is patent and without stenosis. The posterior cerebral arteries are patent. Bilateral posterior communicating arteries are patent and without aneurysm. No saccular aneurysm in the posterior circulation. Post Contrast Head: No pathologic enhancement on delayed post-contrast enhancement. Patent dural venous sinuses. IMPRESSION: 1. No intracranial large vessel occlusion or saccular aneurysm. 2. No arterial occlusion or stenosis in the major neck arteries. 3. Indeterminate left thyroid nodule. Nonemergent thyroid ultrasound is recommended for further workup in the future. Dictated by: Dictated on workstation # [id number]
[2022-06-18] MEDS ORDERED: CLOP75TA28 PO (13:48)
[2022-06-18 13:54] VITALS: BP 138/72
== END 2022-06-18 13:58 | disposition home or self-care (01) ==
LOC: EDUNIT# 09:03 → ER 09:05
DX: R20.0 Anesthesia of skin (principal); R20.2 Paresthesia of skin; R53.1 Weakness
CPT/HCPCS: 36415; 70450; 70496; 70498; 71045; 80053; 81000; 82947; 84484; 85025; 85379; 85610; 85730; 93005; 93041

== ENCOUNTER → 2022-06-18 | Outpatient (CLI) | payer MEDICARE ==
[~2022-06-18] MED LIST changes: +BRIMON0.2; +LOSA100T57; +NEBI5TAB11
== END ==
LOC: CARD 14:35
PROVIDERS: ATTEND Internal Medicine
DX: G45.9 Transient cerebral ischemic attack, unspecified (principal)
CPT/HCPCS: 93246

== ENCOUNTER → 2022-07-19 | Outpatient (CLI) | payer MEDICARE | LOC: CARD 09:43 | PROVIDERS: ATTEND Physician Assistant | DX: I10 Essential (primary) hypertension (principal); I25.10 Atherosclerotic heart disease of native coronary artery without angina pectoris | CPT/HCPCS: 93306 ==

== ENCOUNTER → 2022-08-12 | Outpatient (CLI) | payer MEDICARE ==
[~2022-08-12] VITALS: Ht 167 cm; Wt 89.0 kg
[~2022-08-12] MED LIST changes: +BRIM5DRO3; -BRIMON0.2; +CATHETER FLUSH 10 ML SYR IVP PRN; +REGADENOSON 0.4 MG/5 ML SYR (LEXISCAN) IV ONE; +meTOprolol 5 MG/5 ML (LOPRESSOR) VIAL IV ONE; +meTOprolol 5 MG/5 ML (LOPRESSOR) VIAL ONE
[2022-08-12 09:40] VITALS: BP 191/112
--- NOTE | 2022-08-12 12:00 | Cardiology Stress Test Report ---
Stress Test Report Date of Procedure/Referring: Date of Procedure: August 12, 2022 PCP Leah Worrell DO Admitting Physician Admitting Physician: Attending Physician: Lakia Mon Baseline Heart Rate: 101 Baseline Blood Pressure: Blood Pressure Systolic: 191 Blood Pressure Diastolic: 112 Baseline Vitals Vital Signs Date Time Temp Pulse Resp B/P (MAP) Pulse Ox O2 Delivery O2 Flow Rate FiO2 08/12/22 09:40 102 191/112 (138) Baseline EKG: Baseline EKG: RBBB Summary After explaining the procedure to the patient, he signed a consent and then brought to the stress nuclear laboratory. Patient received 0.4 mg Lexiscan for stress test, ECG, heart rate and blood pressure were monitored continuously. Resting and stress dose of radio tracer were injected, imaging was acquired and reviewed in short axis, horizontal long axis and vertical long axis views. TID: 1.24 SSS: 0 SDS: 0 EF: 49 Patient tolerated Lexiscan well Baseline right bundle branch block persisted during test Baseline hypertension persisted during test Extracardiac attenuation with the left arm down affecting the quality of the images, overall no significant ischemia or infarction noted on SPECT images Borderline transient ischemic dilatation 1.24 Normal left ventricular size, ejection fraction 49% Copy Copies To 1: LEAH WORRELL BASHAR J MD August 12, 2022 12:00
== END ==
LOC: CARD 08:30
PROVIDERS: ATTEND Physician Assistant
DX: I45.10 Unspecified right bundle-branch block (principal); I10 Essential (primary) hypertension
CPT/HCPCS: 78452; 93017; A9502